=== PATIENT | male | born 1980 | race Caucasian/White ===

== ENCOUNTER → 2016-12-21 | Outpatient (CLI) | payer SELFPAY ==
--- NOTE | 2016-12-22 02:36 | REP ---
Clinical: Trauma. Technique: AP, lateral, bilateral oblique views right foot . Findings: The osseous structures and joint spaces are intact and normal. There is no evidence for acute fracture or dislocation. Surrounding soft tissues are unremarkable. No subcutaneous emphysema or radiodense foreign body. Impression: Normal examination. No acute fracture or dislocation. Signed by Tevin Franco MD 12/22/2016 02:27 A
== END ==
LOC: M WUC 12:33
PROVIDERS: ATTEND Physician Assistant
DX: M79.671 Pain in right foot (principal)

== ENCOUNTER 2018-03-17 18:03 | Inpatient (IN) | payer MEDICAID, SELFPAY ==
[2018-03-17 18:46] LABS: HEMATOCRIT 42.2 % (42.0-52.0); HEMOGLOBIN 14.8 g/dl (13.5-17.5); MEAN CORPUSCULAR HEMOGLOBIN 32.5 pg (27.0-33.0); MEAN CORPUSCULAR HGB CONC 35.1 g/dl (32.0-36.5); MEAN CORPUSCULAR VOLUME 92.5 fl (80.0-96.0); PLATELET COUNT, AUTOMATED 344 10^3/uL (150-450); RED BLOOD COUNT 4.56 10^6/uL (4.30-6.10); RED CELL DISTRIBUTION WIDTH 12.2 % (11.5-14.5); WHITE BLOOD COUNT 11.1 10^3/uL (4.0-10.0)
[2018-03-17 19:20] LABS: ALBUMIN 4.6 GM/DL (3.2-5.2); ALBUMIN/GLOBULIN RATIO 1.28 (1.00-1.93); ALKALINE PHOSPHATASE 93 U/L (45-117); ALT/SGPT 87 U/L (12-78); ANION GAP 11 MEQ/L (8-16); AST/SGOT 111 U/L (7-37); BILIRUBIN,DIRECT 0.2 MG/DL (0.0-0.2); BILIRUBIN,TOTAL 0.4 MG/DL (0.2-1.0); BLOOD UREA NITROGEN 12 MG/DL (7-18); CALCIUM LEVEL 9.1 MG/DL (8.5-10.1); CARBON DIOXIDE LEVEL 26 MEQ/L (21-32); CHLORIDE LEVEL 108 MEQ/L (98-107); CREATININE FOR GFR 1.16 MG/DL (0.70-1.30); ETHYL ALCOHOL (ETHANOL) 0.076 % (0.000-0.010); GLOMERULAR FILTRATION RATE > 60.0 (>60); GLUCOSE, FASTING 75 MG/DL (70-100); POTASSIUM SERUM 4.2 MEQ/L (3.5-5.1); SODIUM LEVEL 145 MEQ/L (136-145); TOTAL PROTEIN 8.2 GM/DL (6.4-8.2)
[2018-03-17 19:28] LABS: ACETAMINOPHEN LEVEL < 2.0 UG/ML (10.0-30.0)
[2018-03-17 19:37] LABS: AMPHETAMINES LEVEL URINE NEGATIVE (NEGATIVE); BARBITURATES URINE NEGATIVE (NEGATIVE); BENZODIAZEPINES URINE NEGATIVE (NEGATIVE); CANNABINOIDS URINE POSITIVE (NEGATIVE); COCAINE METABOLITE URINE POSITIVE (NEGATIVE); METHADONE URINE NEGATIVE (NEGATIVE); OPIATES URINE NEGATIVE (NEGATIVE); PHENCYCLIDINE URINE NEGATIVE (NEGATIVE)
[2018-03-17] MEDS ORDERED: MAALOX 30 ML SUSP *UDC PO (21:45)
[2018-03-17] MEDS ORDERED: OLANZapine ORAL DISINTEGRATING TAB 5MG PO (21:45)
[2018-03-17] MEDS ORDERED: MOM 30ML SUSPENSION UDC PO (21:45)
[2018-03-17] MEDS ORDERED: traZODone 50 MG TAB PO (21:45)
[2018-03-17] MEDS: LORazepam 0.5 MG TAB PO (23:10)
[2018-03-18] MEDS: ACETAMINOPHEN TAB 650MG DOSE (2X325MG) PO (01:41)
[2018-03-18] MEDS: diphenhydrAMINE 50 MG CAP PO (02:56)
[2018-03-18] MEDS: INFLUENZA QUADRIVALENT PF VACCINE 0.5ML SYRINGE (90686) IM ×2 (09:23→09:34)
[2018-03-18] MEDS: CETIRIZINE (ZyrTEC) 10 MG TAB PO (11:39)
[2018-03-18] MEDS: FLUTICASONE PROP 0.05% NASAL SPRAY 16 GM (FLONASE) NARES (11:42)
[2018-03-18] MEDS: BACITRACIN OINT 30GM TOP (11:43)
[2018-03-18] MEDS: CLOTRIMAZOLE 1% TOPICAL CREAM 30GM TOP ×2 (11:43→20:43)
[2018-03-18 12:30] LABS: HEPATITIS B SURFACE ANTIGEN NEGATIVE (NEGATIVE)
[2018-03-18 12:57] LABS: HEPATITIS C VIRUS ABY INDEX 0.1 INDEX (<0.8)
[2018-03-18 12:58] LABS: HEPATITIS B CORE ANTIBODY IGM NEGATIVE (NEGATIVE)
[2018-03-18 13:00] LABS: HEPATITIS A ANTIBODY IGM NEGATIVE (NEGATIVE)
[2018-03-18] MEDS: RISPERIDONE 1 MG PO ×3 (13:07→20:42)
[2018-03-19] MEDS: CLOTRIMAZOLE 1% TOPICAL CREAM 30GM TOP ×2 (08:14→21:00)
[2018-03-19] MEDS: FLUTICASONE PROP 0.05% NASAL SPRAY 16 GM (FLONASE) NARES (08:15)
[2018-03-19] MEDS: CETIRIZINE (ZyrTEC) 10 MG TAB PO (08:15)
[2018-03-19] MEDS: RISPERIDONE 1 MG PO ×4 (08:15→20:56)
[2018-03-19] MEDS: BACITRACIN OINT 30GM TOP ×2 (08:15→20:57)
[2018-03-19 08:17] LABS: ALBUMIN 3.6 GM/DL (3.2-5.2); ALBUMIN/GLOBULIN RATIO 1.13 (1.00-1.93); ALKALINE PHOSPHATASE 77 U/L (45-117); ALT/SGPT 62 U/L (12-78); ANION GAP 8 MEQ/L (8-16); AST/SGOT 37 U/L (7-37); BILIRUBIN,TOTAL 0.3 MG/DL (0.2-1.0); BLOOD UREA NITROGEN 10 MG/DL (7-18); CALCIUM LEVEL 8.8 MG/DL (8.5-10.1); CARBON DIOXIDE LEVEL 28 MEQ/L (21-32); CHLORIDE LEVEL 109 MEQ/L (98-107); CREATININE FOR GFR 0.86 MG/DL (0.70-1.30); GLOMERULAR FILTRATION RATE > 60.0 (>60); GLUCOSE, FASTING 90 MG/DL (70-100); POTASSIUM SERUM 3.9 MEQ/L (3.5-5.1); SODIUM LEVEL 145 MEQ/L (136-145); TOTAL PROTEIN 6.8 GM/DL (6.4-8.2)
[2018-03-19] MEDS: diphenhydrAMINE 50 MG CAP PO (23:04)
[2018-03-19] MEDS: LORazepam 1 MG TAB PO (23:04)
[2018-03-20] MEDS: RISPERIDONE 1 MG PO ×2 (09:27→21:11)
[2018-03-20] MEDS: CETIRIZINE (ZyrTEC) 10 MG TAB PO (09:27)
[2018-03-20] MEDS: BACITRACIN OINT 30GM TOP (09:28)
[2018-03-20] MEDS: FLUTICASONE PROP 0.05% NASAL SPRAY 16 GM (FLONASE) NARES (09:28)
[2018-03-20] MEDS: CLOTRIMAZOLE 1% TOPICAL CREAM 30GM TOP ×2 (09:28→21:13)
[2018-03-20] MEDS: BENZTROPINE 1 MG TAB PO ×2 (09:52→21:11)
[2018-03-21] MEDS: BENZTROPINE 1 MG TAB PO ×2 (09:22→21:09)
[2018-03-21] MEDS: CETIRIZINE (ZyrTEC) 10 MG TAB PO (09:22)
[2018-03-21] MEDS: RISPERIDONE 1 MG PO ×2 (09:22→21:09)
[2018-03-21] MEDS: CLOTRIMAZOLE 1% TOPICAL CREAM 30GM TOP ×2 (09:23→21:09)
[2018-03-21] MEDS: FLUTICASONE PROP 0.05% NASAL SPRAY 16 GM (FLONASE) NARES (09:24)
[2018-03-21] MEDS: diphenhydrAMINE 50 MG CAP PO (21:09)
[2018-03-21] MEDS: BACITRACIN OINT 30GM TOP (21:12)
[2018-03-22] MEDS: RISPERIDONE 1 MG PO ×2 (08:50→21:25)
[2018-03-22] MEDS: BENZTROPINE 1 MG TAB PO ×2 (08:50→21:25)
[2018-03-22] MEDS: CETIRIZINE (ZyrTEC) 10 MG TAB PO (08:51)
[2018-03-22] MEDS: CLOTRIMAZOLE 1% TOPICAL CREAM 30GM TOP ×2 (08:51→21:26)
[2018-03-22] MEDS: BACITRACIN OINT 30GM TOP (08:51)
[2018-03-22] MEDS: FLUTICASONE PROP 0.05% NASAL SPRAY 16 GM (FLONASE) NARES (08:51)
[2018-03-22] MEDS: diphenhydrAMINE 50 MG CAP PO (17:17)
[2018-03-23] MEDS: BENZTROPINE 1 MG TAB PO ×2 (08:47→21:10)
[2018-03-23] MEDS: RISPERIDONE 1 MG PO (08:47)
[2018-03-23] MEDS: FLUTICASONE PROP 0.05% NASAL SPRAY 16 GM (FLONASE) NARES (08:47)
[2018-03-23] MEDS: CETIRIZINE (ZyrTEC) 10 MG TAB PO (08:47)
[2018-03-23] MEDS: CLOTRIMAZOLE 1% TOPICAL CREAM 30GM TOP ×2 (08:48→21:11)
[2018-03-23] MEDS: risperiDONE 2 MG TAB PO (21:10)
[2018-03-24] MEDS: CETIRIZINE (ZyrTEC) 10 MG TAB PO (08:21)
[2018-03-24] MEDS: FLUTICASONE PROP 0.05% NASAL SPRAY 16 GM (FLONASE) NARES (08:21)
[2018-03-24] MEDS: CLOTRIMAZOLE 1% TOPICAL CREAM 30GM TOP ×2 (08:22→20:19)
[2018-03-24] MEDS: risperiDONE 2 MG TAB PO (20:19)
[2018-03-24] MEDS: BENZTROPINE 1 MG TAB PO (20:19)
[2018-03-24] MEDS: ACETAMINOPHEN TAB 650MG DOSE (2X325MG) PO (20:20)
[2018-03-25] MEDS: CETIRIZINE (ZyrTEC) 10 MG TAB PO (08:30)
[2018-03-25] MEDS: CLOTRIMAZOLE 1% TOPICAL CREAM 30GM TOP (08:31)
[2018-03-25] MEDS: FLUTICASONE PROP 0.05% NASAL SPRAY 16 GM (FLONASE) NARES (08:31)
== END 2018-03-25 17:55 | disposition home or self-care (01) | DRG 753 ==
LOC: M PSY 03-18 01:16 → M ED 18:03 → M ED INP 21:38
PROVIDERS: Psychiatry & Neurology Psychiatry
DX: F31.2 Bipolar disorder, current episode manic severe with psychotic features (principal); F14.10 Cocaine abuse, uncomplicated; F10.10 Alcohol abuse, uncomplicated; F12.10 Cannabis abuse, uncomplicated; J30.9 Allergic rhinitis, unspecified; S80.811A Abrasion, right lower leg, initial encounter; S80.812A Abrasion, left lower leg, initial encounter; R74.0 Nonspecific elevation of levels of transaminase and lactic acid dehydrogenase [LDH]; R21 Rash and other nonspecific skin eruption; Z79.899 Other long term (current) drug therapy; X58.XXXA Exposure to other specified factors, initial encounter; Y92.9 Unspecified place or not applicable; Y93.9 Activity, unspecified

== ENCOUNTER 2018-05-05 02:32 | Emergency (ER) | payer OTHER, MEDICAID ==
[2018-05-05 03:45] LABS: HEMATOCRIT 43.6 % (42.0-52.0); HEMOGLOBIN 14.8 g/dl (13.5-17.5); MEAN CORPUSCULAR HEMOGLOBIN 31.4 pg (27.0-33.0); MEAN CORPUSCULAR HGB CONC 33.9 g/dl (32.0-36.5); MEAN CORPUSCULAR VOLUME 92.4 fl (80.0-96.0); PLATELET COUNT, AUTOMATED 340 10^3/uL (150-450); RED BLOOD COUNT 4.72 10^6/uL (4.30-6.10); RED CELL DISTRIBUTION WIDTH 12.2 % (11.5-14.5); WHITE BLOOD COUNT 5.8 10^3/uL (4.0-10.0)
[2018-05-05 04:14] LABS: AMPHETAMINES LEVEL URINE NEGATIVE (NEGATIVE); BARBITURATES URINE NEGATIVE (NEGATIVE); BENZODIAZEPINES URINE NEGATIVE (NEGATIVE); CANNABINOIDS URINE POSITIVE (NEGATIVE); COCAINE METABOLITE URINE POSITIVE (NEGATIVE); METHADONE URINE NEGATIVE (NEGATIVE); OPIATES URINE NEGATIVE (NEGATIVE); PHENCYCLIDINE URINE NEGATIVE (NEGATIVE)
[2018-05-05 04:25] LABS: ACETAMINOPHEN LEVEL < 2.0 UG/ML (10.0-30.0); ALBUMIN 4.3 GM/DL (3.2-5.2); ALBUMIN/GLOBULIN RATIO 1.16 (1.00-1.93); ALKALINE PHOSPHATASE 91 U/L (45-117); ALT/SGPT 38 U/L (12-78); ANION GAP 11 MEQ/L (8-16); AST/SGOT 19 U/L (7-37); BILIRUBIN,DIRECT < 0.1 MG/DL (0.0-0.2); BILIRUBIN,TOTAL 0.2 MG/DL (0.2-1.0); BLOOD UREA NITROGEN 13 MG/DL (7-18); CALCIUM LEVEL 8.7 MG/DL (8.5-10.1); CARBON DIOXIDE LEVEL 27 MEQ/L (21-32); CHLORIDE LEVEL 106 MEQ/L (98-107); CREATININE FOR GFR 0.76 MG/DL (0.70-1.30); ETHYL ALCOHOL (ETHANOL) 0.071 % (0.000-0.010); GLOMERULAR FILTRATION RATE > 60.0 (>60); GLUCOSE, FASTING 98 MG/DL (70-100); POTASSIUM SERUM 3.8 MEQ/L (3.5-5.1); SALICYLATE LEVEL < 1.7 MG/DL (5.0-30.0); SODIUM LEVEL 144 MEQ/L (136-145)
== END 2018-05-05 05:52 | disposition home or self-care (01) ==
LOC: M ED 02:32
DX: Z91.048 Other nonmedicinal substance allergy status (principal); F19.10 Other psychoactive substance abuse, uncomplicated; F17.210 Nicotine dependence, cigarettes, uncomplicated
CPT/HCPCS: 80320

== ENCOUNTER → 2018-06-06 | Outpatient (CLI) | payer OTHER ==
[2018-06-06 08:23] LABS: HEMATOCRIT 41.8 % (42.0-52.0); HEMOGLOBIN 14.5 g/dl (13.5-17.5); MEAN CORPUSCULAR HEMOGLOBIN 31.7 pg (27.0-33.0); MEAN CORPUSCULAR HGB CONC 34.7 g/dl (32.0-36.5); MEAN CORPUSCULAR VOLUME 91.5 fl (80.0-96.0); PLATELET COUNT, AUTOMATED 291 10^3/uL (150-450); RED BLOOD COUNT 4.57 10^6/uL (4.30-6.10); RED CELL DISTRIBUTION WIDTH 12.1 % (11.5-14.5); WHITE BLOOD COUNT 7.1 10^3/uL (4.0-10.0)
[2018-06-06 08:51] LABS: ALBUMIN/GLOBULIN RATIO 1.18 (1.00-1.93); ALKALINE PHOSPHATASE 92 U/L (45-117); ALT/SGPT 28 U/L (12-78); ANION GAP 5 MEQ/L (8-16); AST/SGOT 14 U/L (7-37); BILIRUBIN,TOTAL 0.3 MG/DL (0.2-1.0); BLOOD UREA NITROGEN 18 MG/DL (7-18); CARBON DIOXIDE LEVEL 30 MEQ/L (21-32); CHLORIDE LEVEL 103 MEQ/L (98-107); CHOLESTEROL LEVEL 246 MG/DL (<200); CREATININE FOR GFR 0.97 MG/DL (0.70-1.30); GLOMERULAR FILTRATION RATE > 60.0 (>60); GLUCOSE, FASTING 93 MG/DL (70-100); HDL CHOLESTEROL 52 MG/DL (>40); IRON (FE) 122 UG/DL (65-175); LDL CHOLESTEROL 159 MG/DL (<100); NON-HDL-C 194 MG/DL; PERCENT SATURATION 41.4 % (19.7-50.0); POTASSIUM SERUM 4.1 MEQ/L (3.5-5.1); SODIUM LEVEL 138 MEQ/L (136-145); TOTAL IRON BINDING CAPACITY 295 UG/DL (250-450); TOTAL PROTEIN 7.4 GM/DL (6.4-8.2); TRIGLYCERIDES LEVEL 176 MG/DL (<150)
[2018-06-06 10:15] LABS: TOTAL 25(OH) VITAMIN D 23.8 NG/ML (30.0-100.0)
[2018-06-06 10:34] LABS: ESTIMATED AVERAGE GLUCOSE 114 MG/DL (60-110); HEMOGLOBIN A1c 5.6 %
== END ==
LOC: M LAB 07:48
DX: D64.9 Anemia, unspecified (principal); R53.83 Other fatigue; E03.9 Hypothyroidism, unspecified
CPT/HCPCS: 83550

== ENCOUNTER → 2018-06-21 | Outpatient (CLI) | payer OTHER | LOC: M SMT 15:11 | DX: J93.9 Pneumothorax, unspecified (principal) | CPT/HCPCS: 71046 ==

== ENCOUNTER → 2018-10-06 | Outpatient (CLI) | payer OTHER ==
[~2018-10-06] MED LIST: BENZ-52 PO; CLOTR1CR TOP; FLON1SPR NARES; RISP2TAB32 PO; TRAZO50TA PO; ZYRTTAB8 PO
== END ==
LOC: M OUTALCOH 07:50
PROVIDERS: ATTEND Psychiatry & Neurology Psychiatry
DX: F14.20 Cocaine dependence, uncomplicated (principal)

== ENCOUNTER → 2018-11-08 | Outpatient (RCR) | payer OTHER ==
[~2018-11-08] MED LIST changes: +CLOT1CRE27 TOP; -CLOTR1CR TOP
== END ==
LOC: M OUTALCOH 10-17 09:02
PROVIDERS: ATTEND Psychiatry & Neurology Psychiatry
DX: F14.20 Cocaine dependence, uncomplicated (principal)

== ENCOUNTER → 2018-12-09 | Outpatient (RCR) | payer OTHER | LOC: M OUTALCOH 11-18 08:17 | PROVIDERS: ATTEND Psychiatry & Neurology Psychiatry | DX: F14.20 Cocaine dependence, uncomplicated (principal) ==

== ENCOUNTER → 2018-12-23 | Outpatient (CLI) | payer OTHER ==
[~2018-12-23] MED LIST changes: +TRAZ1TAB10 PO; -TRAZO50TA PO
[2018-12-23 11:41] LABS: HEMATOCRIT 39.6 % (42.0-52.0); MEAN CORPUSCULAR HEMOGLOBIN 30.9 pg (27.0-33.0); MEAN CORPUSCULAR HGB CONC 32.8 g/dl (32.0-36.5); MEAN CORPUSCULAR VOLUME 94.1 fl (80.0-96.0); PLATELET COUNT, AUTOMATED 243 10^3/uL (150-450); RED BLOOD COUNT 4.21 10^6/uL (4.30-6.10); WHITE BLOOD COUNT 4.5 10^3/uL (4.0-10.0)
[2018-12-23 12:18] LABS: ALBUMIN 3.9 GM/DL (3.2-5.2); ALT/SGPT 24 U/L (12-78); BILIRUBIN,TOTAL 0.2 MG/DL (0.2-1.0); BLOOD UREA NITROGEN 10 MG/DL (7-18); CALCIUM LEVEL 8.5 MG/DL (8.5-10.1); CARBON DIOXIDE LEVEL 31 MEQ/L (21-32); CHLORIDE LEVEL 106 MEQ/L (98-107); CHOLESTEROL LEVEL 206 MG/DL (<200); CHOLESTEROL RISK RATIO 4.681 (<5); CREATININE FOR GFR 0.76 MG/DL (0.70-1.30); GLOMERULAR FILTRATION RATE > 60.0 (>60); GLUCOSE, FASTING 82 MG/DL (70-100); HDL CHOLESTEROL 44 MG/DL (>40); LDL CHOLESTEROL 137 MG/DL (<100); NON-HDL-C 162 MG/DL; POTASSIUM SERUM 4.7 MEQ/L (3.5-5.1); SODIUM LEVEL 140 MEQ/L (136-145); THYROXINE (T4) 7.6 UG/DL (4.5-12.0); TOTAL PROTEIN 7.3 GM/DL (6.4-8.2); TRIGLYCERIDES LEVEL 123 MG/DL (<150)
[2018-12-23 12:19] LABS: THYROID STIMULATING HORMONE 0.577 uIU/ML (0.358-3.740); TOTAL T3 101.3 NG/DL (60.0-181.0)
== END ==
LOC: M LAB 10:47
PROVIDERS: ATTEND Family Medicine
DX: R53.83 Other fatigue (principal); E03.9 Hypothyroidism, unspecified

== ENCOUNTER 2019-01-03 14:55 | Outpatient (RCR) | payer OTHER | END 2019-01-08 | LOC: M OUTALCOH 14:55 | PROVIDERS: ATTEND Psychiatry & Neurology Psychiatry | DX: F14.20 Cocaine dependence, uncomplicated (principal) ==

== ENCOUNTER 2019-01-16 08:49 | Outpatient (RCR) | payer OTHER | END 2019-02-08 | LOC: M OUTALCOH 08:49 | PROVIDERS: ATTEND Psychiatry & Neurology Psychiatry | DX: F14.20 Cocaine dependence, uncomplicated (principal) ==

== ENCOUNTER 2019-03-01 03:33 | Emergency (ER) | payer OTHER ==
[~2019-03-01] VITALS: Ht 188 cm; Wt 79.5 kg
[2019-03-01] MEDS ORDERED: AMPHET/DEXTR (03:39)
[2019-03-01] MEDS ORDERED: LEVO50TA5 PO (03:39)
[2019-03-01] MEDS ORDERED: VITA500045 PO (03:39)
[2019-03-01] MEDS ORDERED: ALPR1TAB3 PO (03:39)
[2019-03-01] MEDS ORDERED: FLUO40CA PO (03:39)
[2019-03-01] MEDS ORDERED: AUGMENTIN 875 MG TAB PO ONE (05:15)
[2019-03-01] MEDS ORDERED: AUGM875T28 PO (05:17)
[2019-03-01 05:42] VITALS: BP 109/57
[2019-07-21] MEDS ORDERED: ZYPR5TAB2 PO (09:28)
== END 2019-03-01 05:43 | disposition home or self-care (01) ==
LOC: M ED 03:33
DX: J02.9 Acute pharyngitis, unspecified (principal); F14.10 Cocaine abuse, uncomplicated; F12.10 Cannabis abuse, uncomplicated; Z72.0 Tobacco use; Z79.899 Other long term (current) drug therapy; J30.2 Other seasonal allergic rhinitis

== ENCOUNTER 2019-05-15 02:05 | Inpatient (IN) | payer OTHER ==
[~2019-05-15] VITALS: Ht 188 cm; Wt 75.0 kg
[~2019-05-15 02:05] MED LIST changes: +ALPR1TAB3 PO; +AMPHET/DEXTR; +AUGM875T28 PO; +FLUO40CA PO; +LEVO50TA5 PO; +VITA500045 PO
[2019-05-15 02:46] LABS: HEMATOCRIT 44.5 % (42.0-52.0); HEMOGLOBIN 14.5 g/dl (13.5-17.5); MEAN CORPUSCULAR HEMOGLOBIN 32.3 pg (27.0-33.0); MEAN CORPUSCULAR HGB CONC 32.6 g/dl (32.0-36.5); MEAN CORPUSCULAR VOLUME 99.1 fl (80.0-96.0); PLATELET COUNT, AUTOMATED 284 10^3/uL (150-450); RED BLOOD COUNT 4.49 10^6/uL (4.30-6.10); WHITE BLOOD COUNT 7.8 10^3/uL (4.0-10.0)
[2019-05-15 02:59] LABS: AMPHETAMINES LEVEL URINE NEGATIVE (NEGATIVE); BARBITURATES URINE NEGATIVE (NEGATIVE); BENZODIAZEPINES URINE POSITIVE (NEGATIVE); CANNABINOIDS URINE POSITIVE (NEGATIVE); COCAINE METABOLITE URINE NEGATIVE (NEGATIVE); METHADONE URINE NEGATIVE (NEGATIVE); OPIATES URINE NEGATIVE (NEGATIVE); PHENCYCLIDINE URINE NEGATIVE (NEGATIVE)
[2019-05-15 03:22] LABS: ACETAMINOPHEN LEVEL < 2.0 UG/ML (10.0-30.0); ALT/SGPT 28 U/L (12-78); BILIRUBIN,DIRECT < 0.1 MG/DL (0.0-0.2); BILIRUBIN,TOTAL 0.3 MG/DL (0.2-1.0); BLOOD UREA NITROGEN 16 MG/DL (7-18); CALCIUM LEVEL 8.7 MG/DL (8.5-10.1); CARBON DIOXIDE LEVEL 30 MEQ/L (21-32); CHLORIDE LEVEL 102 MEQ/L (98-107); CREATININE FOR GFR 0.92 MG/DL (0.70-1.30); ETHYL ALCOHOL (ETHANOL) < 0.003 % (0.000-0.010); GLOMERULAR FILTRATION RATE > 60.0 (>60); GLUCOSE, FASTING 87 MG/DL (70-100); POTASSIUM SERUM 4.2 MEQ/L (3.5-5.1); SALICYLATE LEVEL 2.3 MG/DL (5.0-30.0); SODIUM LEVEL 139 MEQ/L (136-145); TOTAL PROTEIN 7.9 GM/DL (6.4-8.2)
[2019-05-15] MEDS ORDERED: ADDE20TA PO (11:39)
[2019-05-15] MEDS ORDERED: MOM 30ML SUSPENSION UDC PO PRN (11:45)
[2019-05-15] MEDS ORDERED: ACETAMINOPHEN TAB 650MG DOSE (2X325MG) PO PRN (11:45)
[2019-05-15] MEDS: NICOTINE 7 MG/24 HR TRANSDERMAL TD SCH (12:43)
[2019-05-15] MEDS: OLANZapine ORAL DISINTEGRATING TAB 5MG PO PRN ×2 (13:31→22:25)
[2019-05-15 15:35] VITALS: BP 104/70
--- NOTE | 2019-05-15 16:44 | HPEPDOC ---
General Date of Admission May 15, 2019 at 11:41 Date of Service: May 15, 2019 Chief Complaint The patient is a 39-year-old male admitted with a reason for visit of Unspecified Psychosis. History of Present Illness 39 years old white male with past medical history of allergic rhinitis substance abuse was admitted and treated in psych unit last year. Again, he was brought in as he is distraught is mother's trailer and was suicidal and is being admitted to inpatient mental health unit. Not offering any complaints including shortness of breath, chest pain, anxiety, homicidal ideation Home Medications Scheduled Dextroamphetamine/Amphetamine (Adderall 20 mg Tablet) 20 Mg Tablet, 20 MG PO BID, (Reported) TAKES MORNING AND MID AFTERNOON, NO LATER THAN 1400 Ergocalciferol (Vitamin D2) (Vitamin D2) 50,000 Unit Capsule, 50,000 UNIT PO QWEEK, (Reported) WEDNESDAYS Fluoxetine Hcl (Fluoxetine HCl) 40 Mg Capsule, 40 MG PO DAILY, (Reported) Levothyroxine Sodium (Levothyroxine Sodium) 50 Mcg Tablet, 50 MCG PO DAILY, (Reported) Scheduled PRN Alprazolam (Alprazolam) 1 Mg Tablet, 1 MG PO TID PRN for ANXIETY, (Reported) Allergies Coded Allergies: WEEDS (Verified Allergy, Intermediate, hives, 05/15/19) Past Medical History Medical History Allergic rhinitis substance abuse Surgical History , Tympanostomy tubes, Family History Significant Family History: No pertinent family hx Social History * Smoker: Denies Alcohol: occationally Drugs: cocaine, marijuana A-FIB/CHADSVASC A-FIB History Current/History of A-Fib/PAF?: No Review of Systems Constitutional: Denies: Chills, Fever, Malaise, Night Sweats, Weakness, Fatigue, Weight Loss, Lethargy, Other Eyes: Denies: Pain, Vision change, Conjunctivae inflammation, Eyelid inflammation, Redness, Other ENT: Denies: Head Aches, Ear Pain, Dysphagia, Sinus Congestion, Post Nasal Drip, Sore Throat, Epistaxis, Other Symptoms Skin: Denies: Rash, Lesions, Jaundice, Bruising, Itching, Dry, Breakdown, Nail Changes, Other Pulmonary: Denies: Dyspnea, Cough, Pleuritic Chest Pain, Other Symptoms Cardiovascular: Denies: Chest Pain, Palpitations, Orthopnea, Paroxysmal Noc. Dyspnea, Edema, Lt Headedness, Other Symptoms Gastrointestinal: Denies: Nausea, Vomiting, Abdominal Pain, Diarrhea, Constipation, Melena, Hematochezia, Other Symptoms Hematologic: Denies: Bruising, Bleeding Excessively, Petecchia, Purpura, Enl arged Lymph Nodes, Other Hematologic Endocrine: Denies: Polydipsia, Polyphagia, Polyuria, Heat Intolerance, Cold Intolerance, Other Endocrine Sx Musculoskeletal: Denies: Neck Pain, Back Pain, Shoulder Pain, Arm Pain, Hand Pain, Leg Pain, Foot Pain, Joint Pain, Muscle Pain, Spasms, Other Symptoms Neurological: Denies: Weakness, Numbness, Incoordination, Change in speech, Confusion, Seizures, Other Symptoms Psych: Denies: Mood Normal, Anxiety, Depression, Memory Issues, Thoughts of Self Harm, Anger, Thoughts of Harming Other, Other Psych Physical Examination General Exam: Positive: Alert, Cooperative Eye Exam: Positive: PERRLA, Conjunctiva & lids normal ENT Exam: Positive: Atraumatic, Mucous membr. moist/pink Neck Exam: Positive: Supple Chest Exam: Positive: Clear to auscultation, Normal air movement Heart Exam: Positive: Rate Normal, Normal S1 Abdomen Exam: Positive: Normal bowel sounds, Soft Extremity Exam: Positive: Normal pulses Skin Exam: Positive: Nl turgor and temperature Neuro Exam: Positive: Normal Gait, Normal Speech, Strength at 5/5 X4 ext, Sensation Intact Psych Exam: Positive: Mental status NL, Mood NL Vital Signs Vital Signs Date Time Temp Pulse Resp B/P (MAP) Pulse Ox O2 Delivery O2 Flow Rate FiO2 05/15/19 15:25 96.8 67 19 136/92 (107) 98 Room Air Laboratory Data Labs 24H Laboratory Tests 2 05/15/19 02:16: Urine Opiates Screen NEGATIVE, Urine Methadone Screen NEGATIVE, Urine Barbiturates Screen NEGATIVE, Urine Phencyclidine Screen NEGATIVE, Urine Amphetamines Screen NEGATIVE, Urine Benzodiazepines Screen POSITIVEH, Urine Cocaine Metabolite Screen NEGATIVE, Urine Cannabinoids Screen POSITIVEH 05/15/19 02:35: Nucleated Red Blood Cells % (auto) 0.0, Anion Gap 7L, Glomerular Filtration Rate > 60.0, Calcium Level 8.7, Total Bilirubin 0.3, Direct Bilirubin < 0.1, Aspartate Amino Transf (AST/SGOT) 12, Alanine Aminotransferase (ALT/SGPT) 28, Alkaline Phosphatase 107, Total Protein 7.9, Albumin 4.0, Albumin/Globulin Ratio 1.03, Thyroid Stimulating Hormone (TSH) 1.310, Salicylates Level 2.3L, Acetaminophen Level < 2.0L, Ethyl Alcohol Level < 0.003 CBC/BMP Laboratory Tests 05/15/19 02:35 Problems (1) Depression with suicidal ideation Status: Acute Problem Text: Patient with depression and suicidal ideation admitted to psych unit Group and individual counseling sessions with psychiatry Psych meds as per psychiatry (2) Psychosis Status: Acute Problem Text: Further management as per psych (3) Polysubstance abuse Status: Acute Problem Text: History of polysubstance abuse Benzos and cannabinoids positive and urine tox screen For the counseling and management as per psychiatry Plan / VTE VTE Prophylaxis Ordered?: No VTE Exclusion Mechanical Proph: Low Risk for VTE VTE Exclusion Pharmacological: At Low Risk for VTE DEANDRE BADILLO MD May 15, 2019 16:44
[2019-05-16] MEDS ORDERED: LEVOTHYROXINE 50MCG TABLET (0.05MG) PO SCH ×2 (06:00→12:27)
[2019-05-16 06:36] VITALS: BP 112/64
[2019-05-16] MEDS: NICOTINE 7 MG/24 HR TRANSDERMAL TD SCH (09:00)
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
[2019-05-16 11:15] VITALS: BP 115/63
[2019-05-16] MEDS: FLUoxetine 20 MG CAP PO SCH (12:43)
[2019-05-16] MEDS: IBUPROFEN 600 MG TAB PO PRN ×2 (12:45→21:37)
[2019-05-16 15:24] VITALS: BP 143/73
[2019-05-16] MEDS ORDERED: risperiDONE 0.5 MG TAB PO SCH (21:00)
[2019-05-16] MEDS: ALPRAZolam 0.5 MG TAB PO PRN (21:37)
[2019-05-17] MEDS: IBUPROFEN 600 MG TAB PO PRN ×2 (05:18→08:37)
[2019-05-17 06:47] VITALS: BP 140/88
[2019-05-17] MEDS: FLUoxetine 20 MG CAP PO SCH (08:37)
[2019-05-17] MEDS: ALPRAZolam 0.5 MG TAB PO PRN (08:38)
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
== END 2019-05-17 12:30 | disposition home or self-care (01) | DRG 774 ==
LOC: M ED 02:05 → M ED INP 11:41 → M PSY 15:35
PROVIDERS: ADMIT Psychiatry & Neurology Addiction Medicine; ATTEND Psychiatry & Neurology Addiction Medicine
DX: F19.94 Other psychoactive substance use, unspecified with psychoactive substance-induced mood disorder (principal); F14.20 Cocaine dependence, uncomplicated; F43.10 Post-traumatic stress disorder, unspecified; F17.210 Nicotine dependence, cigarettes, uncomplicated; F12.20 Cannabis dependence, uncomplicated; Z79.899 Other long term (current) drug therapy; Z91.09 Other allergy status, other than to drugs and biological substances; J30.9 Allergic rhinitis, unspecified; F32.9 Major depressive disorder, single episode, unspecified; F29 Unspecified psychosis not due to a substance or known physiological condition

== ENCOUNTER 2019-07-13 17:13 | Inpatient (IN) | payer OTHER ==
[~2019-07-13] VITALS: Ht 188 cm; Wt 79.3 kg
[~2019-07-13 17:13] MED LIST changes: +ADDE20TA PO
[2019-07-13 17:49] LABS: HEMATOCRIT 45.4 % (42.0-52.0); HEMOGLOBIN 15.4 g/dl (13.5-17.5); MEAN CORPUSCULAR HEMOGLOBIN 32.4 pg (27.0-33.0); MEAN CORPUSCULAR HGB CONC 33.9 g/dl (32.0-36.5); MEAN CORPUSCULAR VOLUME 95.4 fl (80.0-96.0); PLATELET COUNT, AUTOMATED 297 10^3/uL (150-450); RED BLOOD COUNT 4.76 10^6/uL (4.30-6.10); WHITE BLOOD COUNT 8.6 10^3/uL (4.0-10.0)
[2019-07-13 18:19] LABS: ACETAMINOPHEN LEVEL < 2.0 UG/ML (10.0-30.0); ALBUMIN 4.2 GM/DL (3.2-5.2); ALT/SGPT 37 U/L (12-78); BILIRUBIN,DIRECT < 0.1 MG/DL (0.0-0.2); BILIRUBIN,TOTAL 0.2 MG/DL (0.2-1.0); BLOOD UREA NITROGEN 20 MG/DL (7-18); CALCIUM LEVEL 9.2 MG/DL (8.5-10.1); CARBON DIOXIDE LEVEL 30 MEQ/L (21-32); CHLORIDE LEVEL 104 MEQ/L (98-107); CREATININE FOR GFR 0.81 MG/DL (0.70-1.30); ETHYL ALCOHOL (ETHANOL) < 0.003 % (0.000-0.010); GLOMERULAR FILTRATION RATE > 60.0 (>60); GLUCOSE, FASTING 109 MG/DL (70-100); POTASSIUM SERUM 4.3 MEQ/L (3.5-5.1); SALICYLATE LEVEL < 1.7 MG/DL (5.0-30.0); SODIUM LEVEL 141 MEQ/L (136-145); TOTAL PROTEIN 7.9 GM/DL (6.4-8.2)
[2019-07-13 18:59] LABS: AMPHETAMINES LEVEL URINE NEGATIVE (NEGATIVE); BARBITURATES URINE NEGATIVE (NEGATIVE); BENZODIAZEPINES URINE NEGATIVE (NEGATIVE); CANNABINOIDS URINE POSITIVE (NEGATIVE); COCAINE METABOLITE URINE NEGATIVE (NEGATIVE); METHADONE URINE NEGATIVE (NEGATIVE); OPIATES URINE NEGATIVE (NEGATIVE); PHENCYCLIDINE URINE NEGATIVE (NEGATIVE)
[2019-07-13] MEDS ORDERED: ALPRAZolam 0.5 MG TAB PO ONE (19:30)
[2019-07-13] MEDS ORDERED: OLANZapine ORAL DISINTEGRATING TAB 5MG PO PRN (20:15)
[2019-07-13] MEDS ORDERED: MAALOX 30 ML SUSP *UDC PO PRN (20:15)
[2019-07-13] MEDS ORDERED: MOM 30ML SUSPENSION UDC PO PRN (20:15)
[2019-07-13 21:02] VITALS: BP 137/79
[2019-07-13] MEDS: ALPRAZolam 0.5 MG TAB PO PRN (21:40)
[2019-07-13] MEDS: ACETAMINOPHEN TAB 650MG DOSE (2X325MG) PO PRN (21:40)
[2019-07-13] MEDS: traZODone 50 MG TAB PO PRN (21:40)
[2019-07-14] MEDS: LEVOTHYROXINE 50MCG TABLET (0.05MG) PO SCH (06:09)
[2019-07-14 06:32] VITALS: BP 120/60
[2019-07-14] MEDS: FLUoxetine 20 MG CAP PO SCH (08:57)
[2019-07-14] MEDS ORDERED: hydrOXYzine 50 MG TAB PO PRN (11:45)
[2019-07-14] MEDS: ACETAMINOPHEN TAB 650MG DOSE (2X325MG) PO PRN (11:59)
--- NOTE | 2019-07-14 12:12 | MHHPEPDOC ---
General Date Of Admission: Jul 13, 2019 Legal Status: 9.39 Chief Complaint "I never said I was actually going to kill myself." History of Present Illness HISTORY OF THE PRESENT ILLNESS: Patient is a 39 -year-old , male, with a history of bipolar disorder and substance abuse last admitted [facility] for psychosis 05/17/19 who was brought to ED under 9.[address] after mother called them stating pt was decompensating, making suicidal threats for the past 3 days, and threatened to kill himself night prior admission. Per pt's mother he has been staying at his mother's [facility] and disconnected mother's security system that had given her video access to the property and blocked her phone number to she couldn't contact him. Pt once in ED stated "I never said I was actually going to kill myself." He stated he became upset with his mother after she informed him his ex-girlfriend was dating someone else, they had been together 15yrs. He states he was angry with his mother after she told him not to contact his ex-girlfriend anymore. He did state he text his mother "my life is over" and believes his mother "overreacted" to his text as he denies SI/HI in the ED. Pt's mother contacted by ED and stated that pt was minimizing his symptoms and not safe for d/c to to current suicidal stressors of impending trial DWI w/handgun possession ([facility] 1.5[facility]3yrs care home), recent break-up with 15yr long girlfriend, and property foreclosure. Pt's mother told ED she felt her son would be before the trial if he didn't get help. Past Psychiatric History Previous Psychiatric Diagnosis: bipolar d/o, ADHD Previous Psychiatric Admissions: last admission 05/18/2019 Suicide Attempts: SA attempt 2000 Psychiatric Follow-up: [facility], Dr. Su Psychiatric medications: prozac 40mg daily, xanax 1mg tid Past Medical History Medical Problems denies Head Injury: No Seizures: No Hospitalizations: No Surgeries: No Family Medical/Psychiatric HX Medical Problems noncontributory Psychiatric Disorders: Yes (mother has mental health problems) Addiction: No Suicide Attemps/Completions: No Addiction History nicotine, cocaine (hx of use), opioids (hx of use), other (cannabis- utox pos) Social History Childhood: born and raised in [place], parents at at 12, emacipated at 18, states mother was controlling and father is a retired county health officer, [place] Abuse/Trauma:denies Current Living Situation: lives in [place]. 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 Legal: DUI and drug dealing, history of incarceration, recent DWI w/gun possession facing care home sentence with plea deal 1.5-3yrs Marital: single, never , no kids Mental Status Examination General Appearance: well groomed, appears stated age, hospital scubs/clothing Build: average Demeanor: guarded Eye Contact: fair Activity: agitated, anxious Behavior: uncooperative, resistant Speech: clear, reg/rate,rhythm,volume Mood: anxious, irritable Mood I'm fine Affect: full, anxious, other (irritable) Thought Process: logical/linear Thought Content (Delusions): denies SI, HI, AVH Thought Content (Other): none reported Thought Content (Aggressive): none reported Perception (Hallucinations): none reported Perception (Other): none reported Cognition (Impairment of): none reported Cognition(Intelligence Est.): average Oriented: Awake, Alert, Oriented times three Insight: poor Judgment: Poor Psychosis: Denies Diagnoses Mood d/o unspecified R/O substance induced mood d/o - cannabis use cannabis use d/o A-FIB/CHADSVASC A-FIB History Current/History of A-Fib/PAF?: No Assessment Pt seen and states he had a recent break-up with his fiance and has been able to contact her b/c she changed her number and can't see her in [place] as he doesn't have a vehicle to drive there as he [facility] [place] [facility]. States he needs to get a hold of his ex-girlfriend to complete foreclosure on their home as the bank can't reach her to complete it but also admits he hopes they get back together b/c she reads his messages on instant gram as noted on the site even though she makes no effort to respond to them. Pt states he had a panic attack prior admission and that's why his mother got co ncerned and had him brought to ED. States he's fine now, not suicidal, doesn't want to be here, and isn't will to start any new meds to aid mood and anxiety. Pt appears to not be fully reliable though as he know denies texting his mother "my life is over" when in the ED he stated he did. Will restart prozac, d/c xanax as he hasn't taken it in 2months and utox neg, and provide vistaril 50mg q4hr prn for anxiety. Pt is unreliable and due to this pt not safe for d/c as could be lying to just be d/c as actions prior admission do not reflect what he's saying here. Initial Treatment Plan 1. Patient was admitted on a 9.39 status. 2. Complete history was obtained. 3. With patients permission, family will be contacted and database will be expanded. 4. Patients medication regimen will be reviewed and changed accordingly. 5. Patient will be provided with protected environment. 6. Patient will be treated with individual, group, and milieu therapies. 7. Patient will receive supportive psych-education. 8. Discharge planning will commence immediately. 9. Outpatient follow-up treatment will be strongly recommended. 10. The initial treatment plan will focus initially on: * Depression. * Risk for suicide. 11. restart prozac, d/c xanax, vistaril 50mg q4hr prn anxiety ESTIMATED LENGTH OF STAY: 5-7 DAYS. TIME SPENT COUNSELING AND COORDINATING INITIAL CARE: 60 minutes. Vital Signs Vital Signs Date Time Temp Pulse Resp B/P (MAP) Pulse Ox O2 Delivery O2 Flow Rate FiO2 07/14/19 07:36 Room Air 07/14/19 06:32 98.0 51 81 120/60 (80) 07/13/19 21:02 100 Laboratory Data 24H Labs Laboratory Tests 2 07/13/19 17:16: Urine Opiates Screen NEGATIVE, Urine Methadone Screen NEGATIVE, Urine Barbiturates Screen NEGATIVE, Urine Phencyclidine Screen NEGATIVE, Urine Amphetamines Screen NEGATIVE, Urine Benzodiazepines Screen NEGATIVE, Urine Cocaine Metabolite Screen NEGATIVE, Urine Cannabinoids Screen POSITIVEH 07/13/19 17:25: Nucleated Red Blood Cells % (auto) 0.0, Anion Gap 7L, Glomerular Filtration Rate > 60.0, Calcium Level 9.2, Total Bilirubin 0.2, Direct Bilirubin < 0.1, Aspartate Amino Transf (AST/SGOT) 11, Alanine Aminotransferase (ALT/SGPT) 37, Alkaline Phosphatase 74, Total Protein 7.9, Albumin 4.2, Albumin/Globulin Ratio 1.14, Thyroid Stimulating Hormone (TSH) 1.430, Salicylates Level < 1.7L, Acetaminophen Level < 2.0L, Ethyl Alcohol Level < 0.003 CBC/BMP Laboratory Tests 07/13/19 17:25 Medications Scheduled Fluoxetine Hcl (Fluoxetine HCl) 40 Mg Capsule, 40 MG PO DAILY, (Reported) Levothyroxine Sodium (Levothyroxine Sodium) 50 Mcg Tablet, 50 MCG PO DAILY, (Reported) Scheduled PRN Alprazolam (Alprazolam) 1 Mg Tablet, 1 MG PO TID PRN for ANXIETY, (Reported) Allergies Coded Allergies: WEEDS (Verified Allergy, Intermediate, hives, 05/15/19) ROLA LONDONO DO Jul 14, 2019 12:09
--- NOTE | 2019-07-14 13:31 | HPEPDOC ---
General Date of Admission Jul 13, 2019 at 20:35 Date of Service: Jul 14, 2018 Chief Complaint The patient is a 39-year-old male who presented to the emergency room with complaints of anger History of Present Illness Patient is a 39-year-old male with past medical history of hypothyroidism who presented to the emergency room for he broke up with his fiance and became angry. Patient was admitted to inpatient mental health unit under the care of psychiatry. Hospitalist services were consulted for medical screening evaluation. Patient denies any headache, nausea, vomiting, chest pain, shortness of breath, palpitations, cough, abdominal pain, constipation, diarrhea, or urinary discom fort. He denies any fevers or chills over the last 2 weeks. Patient has denied any changes in weight or appetite Home Medications Scheduled Fluoxetine Hcl (Fluoxetine HCl) 40 Mg Capsule, 40 MG PO DAILY, (Reported) Levothyroxine Sodium (Levothyroxine Sodium) 50 Mcg Tablet, 50 MCG PO DAILY, (Reported) Scheduled PRN Alprazolam (Alprazolam) 1 Mg Tablet, 1 MG PO TID PRN for ANXIETY, (Reported) Allergies Coded Allergies: WEEDS (Verified Allergy, Intermediate, hives, 05/15/19) Past Medical History Medical History Hypothyroidism Surgical History Denies any prior surgical history Family History - No history of malignancies Social History - Denies the use of alcohol, tobacco or illicit drugs; however, his drug screen was found to be positive for cannabinoids - Denies recent travel or sick contacts - Lives alone - Occupation; currently unemployed Review of Systems Other systems 10 point review of systems complete, all negative otherwise stated in HPI Vital Signs - Vitals: BP 120/60, HR 83, RR 18, Sat 100%RA, Temp 98.0F - General: Lying in bed, No acute distress, Speaking in full sentences, AAOx3 - HEENT: NC, AT, PERRLA, EOMI - CVS: RRR, +S1S2, - Murmurs / rubs / gallops - Lungs: Fair air entry bilaterally, No appreciable wheezing / rales / rhonchi - Abdomen: Soft, Non-distended, Non-tender - Extremities: No lower extremity edema, No calf tenderness - Neuro: No focal motor or sensory deficit - Skin: No visible rashes Laboratory Data Labs 24H Laboratory Tests 2 07/13/19 17:16: Urine Opiates Screen NEGATIVE, Urine Methadone Screen NEGATIVE, Urine Barbiturates Screen NEGATIVE, Urine Phencyclidine Screen NEGATIVE, Urine Amphetamines Screen NEGATIVE, Urine Benzodiazepines Screen NEGATIVE, Urine Co geo Metabolite Screen NEGATIVE, Urine Cannabinoids Screen POSITIVEH 07/13/19 17:25: Nucleated Red Blood Cells % (auto) 0.0, Anion Gap 7L, Glomerular Filtration Rate > 60.0, Calcium Level 9.2, Total Bilirubin 0.2, Direct Bilirubin < 0.1, Aspartate Amino Transf (AST/SGOT) 11, Alanine Aminotransferase (ALT/SGPT) 37, Alkaline Phosphatase 74, Total Protein 7.9, Albumin 4.2, Albumin/Globulin Ratio 1.14, Thyroid Stimulating Hormone (TSH) 1.430, Salicylates Level < 1.7L, Acetaminophen Level < 2.0L, Ethyl Alcohol Level < 0.003 CBC/BMP Laboratory Tests 07/13/19 17:25 Plan / VTE VTE Prophylaxis Ordered?: Yes Plan Plan Anger - Patient has been admitted to the inpatient mental health unit under the care of psychiatry - This is currently being managed by primary psychiatric service Hypothyroidism - Continue with levothyroxine DVT prophylaxis - Continue with early ambulation Female fitter type bar and segment was present throughout the duration of this history and physical examination Please reconsult hospitalist service as needed. SOLA PERSON MD Jul 14, 2019 13:31
[2019-07-14 18:00] VITALS: BP 113/65
[2019-07-14] MEDS: IBUPROFEN 800 MG TAB PO PRN (21:01)
[2019-07-14] MEDS: traZODone 50 MG TAB PO PRN (23:16)
[2019-07-15] MEDS: LEVOTHYROXINE 50MCG TABLET (0.05MG) PO SCH (06:18)
[2019-07-15 06:44] VITALS: BP 132/74
[2019-07-15] MEDS: FLUoxetine 20 MG CAP PO SCH (09:02)
[2019-07-15] MEDS: IBUPROFEN 800 MG TAB PO PRN ×3 (09:03→23:35)
[2019-07-15 15:56] VITALS: BP 142/78
--- NOTE | 2019-07-15 20:56 | MHIPN ---
DATE: 07/15/2019 The patient today states, "I am doing very good." He has no complaints and denies any suicidal ideations. MENTAL STATUS EXAMINATION: The patient is alert and oriented times three. He is pleasant, cooperative, verbally spontaneous. Eye contact is fairly good. There is no formal thought disorder noted. He says his mood is "very good." Affect is appropriate to mood. He is denying any psychotic symptoms. He is denying being suicidal or homicidal. Concentration is fair. Memory intact. Insight and judgment fair. DIAGNOSES: 1. Mood disorder, unspecified. 2. Rule out substance induced mood disorder (cannabis). 3. Cannabis use disorder. TREATMENT PLAN: At this point, we will continue to monitor the patient for continued elevation and stabilization of his mood and for continued resolution of suicidal ideations.
[2019-07-15] MEDS: traZODone 50 MG TAB PO PRN (23:20)
[2019-07-16] MEDS: LEVOTHYROXINE 50MCG TABLET (0.05MG) PO SCH (06:25)
[2019-07-16 06:43] VITALS: BP 148/83
[2019-07-16] MEDS: FLUoxetine 20 MG CAP PO SCH (08:40)
[2019-07-16] MEDS: IBUPROFEN 800 MG TAB PO PRN ×2 (14:24→22:40)
[2019-07-16 15:52] VITALS: BP 148/81
--- NOTE | 2019-07-16 20:11 | MHIPN ---
DATE: 07/16/2019 The patient today states, "I am doing pretty good." His mother came to visit him and so he is feeling that he is getting some support from her. He says that he does not sleep that good at night but he really does not want me to adjust his trazodone, he thinks that it is just because of being in the hospital and that he will sleep better at home. MENTAL STATUS EXAMINATION: He is alert and oriented times three. Eye contact is fairly good. There is no formal thought disorder noted. Mood is good. Affect is full range and appropriate. He is not psychotic, suicidal or homicidal. Concentration and memory are intact. Insight and judgment fair. DIAGNOSES: 1. Mood disorder, unspecified. 2. Rule out substance induced mood disorder. 3. Cannabis use disorder. TREATMENT PLAN: We will continue to monitor the patient for continued elevation and stabilization of his mood and continued resolution of suicidal ideations.
[2019-07-16] MEDS: traZODone 50 MG TAB PO PRN (22:37)
[2019-07-16] MEDS: ALPRAZolam 0.5 MG TAB PO PRN (22:37)
[2019-07-17 06:23] VITALS: BP 108/59
[2019-07-17] MEDS: LEVOTHYROXINE 50MCG TABLET (0.05MG) PO SCH (07:07)
[2019-07-17] MEDS: FLUoxetine 20 MG CAP PO SCH (08:09)
[2019-07-17] MEDS: ALPRAZolam 0.5 MG TAB PO PRN (08:09)
[2019-07-17] MEDS: IBUPROFEN 800 MG TAB PO PRN (08:09)
[2019-07-17] MEDS ORDERED: FLUO40CA PO (09:14)
[2019-07-17] MEDS ORDERED: HYDR50TA70 PO (11:33)
--- NOTE | 2019-07-18 09:55 | MHDSPDOC ---
[facility] Discharge Summary Discharge Summary DATE OF ADMISSION: Jul 13, 2019 at 20:35 DATE OF DISCHARGE: Jul 17, 2019 at 13:05 DISCHARGE DIAGNOSES: Mood d/o unspecified R/O substance induced mood d/o - cannabis use cannabis use d/o REASON FOR ADMISSION: Patient is a 39 -year-old , male, with a history of bipolar disorder and substance abuse last admitted [facility] for psychosis 05/17/19 who was brought to ED under 9.[address] after mother called them stating pt was decompensating, making suicidal threats for the past 3 days, and threatened to kill himself night prior admission. Per pt's mother he has been staying [facility] and disconnected mother's security system that had given her video access to the property and blocked her phone number to she couldn't contact him. Pt once in ED stated "I never said I was actually going to kill myself." He stated he became upset with his mother after she informed him his ex-girlfriend was dating someone else, they had been together 15yrs. He states he was angry with his mother after she told him not to contact his ex-girlfriend anymore. He did state he text his mother "my life is over" and believes his mother "overreacted" to his text as he denies SI/HI in the ED. Pt's mother contacted by ED and stated that pt was minimizing his symptoms and not safe for d/c to to current suicidal stressors of impending trial DWI w/handgun possession ([facility]it[facility]), recent break-up with 15yr long girlfriend, and property foreclosure. Pt's mother told ED she felt her son would be before the trial if he didn't get help. Pt seen and states he had a recent break-up with his fiance and has been able to contact her b/c she changed her number and can't see her in [place] as he doesn't have a vehicle to drive there as he is in [place] at [facility] currently. States he needs to get a hold of his ex-girlfriend to complete foreclosure on their home as the bank can't reach her to complete it but also admits he hopes they get back together b/c she reads his messages on instant gram as noted on the site even though she makes no effort to respond to them. Pt states he had a panic attack prior admission and that's why his mother got concerned and had him brought to ED. States he's fine now, not suicidal, doesn't want to be here, and isn't will to start any new meds to aid mood and anxiety. Pt appears to not be fully reliable though as he know denies texting his mother "my life is over" when in the ED he stated he did. Will restart prozac, d/c xanax as he hasn't taken it in 2months and utox neg, and provide vistaril 50mg q4hr prn for anxiety. Pt is unreliable and due to this pt not safe for d/c as could be lying to just be d/c as actions prior admission do not reflect what he's saying here. CONSULTANTS INVOLVED: none TREATMENT AND PROGRESS ON THE UNIT : Pt was admitted to [facility], seen for psychiatric assessment and restarted on his outpatient medication prozac 40mg daily He was provided vistaril 50mg qid prn anxiety and trazodone 50mg qhs prn insomnia. Pt found his medications beneficial and tolerated them well. He attended groups daily during his stay. His symptoms improved with treatment. On day of discharge he denied depression, anxiety, insomnia, SI/HI, hallucinations, delusions. He was discharged home with follow-up at [facility]. He felt safe for discharge. DISCHARGE ASSESSMENT: :Pt seen and states that his mood is "good" and that he's looking forward to going home today. States he slept well last night. Feels he is tolerating his medications and they're beneficial. He is attending groups and finding them helpful. He denies depression, anxiety, insomnia, SI/HI, hallucinations, delusions. Pt feels safe to d/c home today. MENTAL STATUS EXAMINATION ON DISCHARGE: General Appearance: well groomed, appears stated age, hospital srcubs/clothing Build: average Demeanor: cooperative Eye Contact: good Activity: average Behavior: uncooperative, resistant Speech: clear, reg/rate,rhythm,volume Mood: euthymic, full range Mood "good" Affect: full, euthymic, congruent Thought Process: logical/linear Thought Content (Delusions): denies SI, HI, AVH Thought Content (Other): none reported Thought Content (Aggressive): none reported Perception (Hallucinations): none reported Perception (Other): none reported Cognition (Impairment of): none reported Cognition(Intelligence Est.): average Oriented: Awake, Alert, Oriented times three Insight: good Judgment: good Psychosis: Denies MEDICATIONS ON DISCHARGE: prozac 40mg daily vistaril 50mg qid prn anxiety PLAN/FOLLOWUP ARRANGEMENTS: D/c home with follow-up at [facility]. The amount of time spent in the coordination of care for this patient was approximately 30 minutes. Patient is a 39 -year-old , male, with a history of bipolar disorder and substance abuse last admitted [facility] for psychosis 05/17/19 who was brought to ED under 9.[address] after mother called them stating pt was decompensating, making suicidal threats for the past 3 days, and threatened to kill himself night prior admission. Per pt's mother he has been staying [facility] and disconnected mother's security system that had given her video access to the property and blocked her phone number to she couldn't contact him. Pt once in ED stated "I never said I was actually going to kill myself." He stated he became upset with his mother after she informed him his ex-girlfriend was dating someone else, they had been together 15yrs. He states he was angry with his mother after she told him not to contact his ex-girlfriend anymore. He did state he text his mother "my life is over" and believes his mother "overreacted" to his text as he denies SI/HI in the ED. Pt's mother contacted by ED and stated that pt was minimizing his symptoms and not safe for d/c to to current suicidal stressors of impending trial DWI w/handgun possession ([facility] penitent[facility]), recent break-up with 15yr long girlfriend, and property foreclosure. Pt's mother told ED she felt her son would be before the trial if he didn't get help. Past Psychiatric History Previous Psychiatric Diagnosis: bipolar d/o, ADHD Previous Psychiatric Admissions: last admission 05/18/2019 Suicide Attempts: SA attempt 2000 Psychiatric Follow-up: [facility], Dr. Su Psychiatric medications: prozac 40mg daily, xanax 1mg tid Past Medical History Medical Problems denies Head Injury: No Seizures: No Hospitalizations: No Surgeries: No Family Medical/Psychiatric HX Medical Problems noncontributory Psychiatric Disorders: Yes (mother has mental health problems) Addiction: No Suicide Attemps/Completions: No Addiction History nicotine, cocaine (hx of use), opioids (hx of use), other (cannabis- utox pos) Social History Childhood: born and raised in [place], parents at at 12, emacipated at 18, states mother was controlling and father is a retired campus police officer, [place] childhood Abuse/Trauma:denies Current Living Situation: lives in [place]. 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 Legal: DUI and drug dealing, history of incarceration, recent DWI w/gun possession facing penitentiary sentence with plea deal 1.5-3yrs Marital: single, never , no kids Mental Status Examination General Appearance: well groomed, appears stated age, hospital scubs/clothing Build: average Demeanor: guarded Eye Contact: fair Activity: agitated, anxious Behavior: uncooperative, resistant Speech: clear, reg/rate,rhythm,volume Mood: anxious, irritable Mood I'm fine Affect: full, anxious, other (irritable) Thought Process: logical/linear Thought Content (Delusions): denies SI, HI, AVH Thought Content (Other): none reported Thought Content (Aggressive): none reported Perception (Hallucinations): none reported Perception (Other): none reported Cognition (Impairment of): none reported Cognition(Intelligence Est.): average Oriented: Awake, Alert, Oriented times three Insight: poor Judgment: Poor Psychosis: Denies Diagnoses Mood d/o unspecified R/O substance induced mood d/o - cannabis use cannabis use d/o A-FIB/CHADSVASC A-FIB History Current/History of A-Fib/PAF?: No Assessment Pt seen and states he had a recent break-up with his fiance and has been able to contact her b/c she changed her number and can't see her in [place] as he doesn't have a vehicle to drive there as he is in [place] at his [facility] currently. States he needs to get a hold of his ex-girlfriend to complete foreclosure on their home as the bank can't reach her to complete it but also admits he hopes they get back together b/c she reads his messages on instant gr am as noted on the site even though she makes no effort to respond to them. Pt states he had a panic attack prior admission and that's why his mother got concerned and had him brought to ED. States he's fine now, not suicidal, doesn't want to be here, and isn't will to start any new meds to aid mood and anxiety. Pt appears to not be fully reliable though as he know denies texting his mother "my life is over" when in the ED he stated he did. Will restart prozac, d/c xanax as he hasn't taken it in 2months and utox neg, and provide vistaril 50mg q4hr prn for anxiety. Pt is unreliable and due to this pt not safe for d/c as could be lying to just be d/c as actions prior admission do not reflect what he's saying here. Initial Treatment Plan 1. Patient was admitted on a 9.39 status. 2. Complete history was obtained. 3. With patients permission, family will be contacted and database will be expanded. 4. Patients medication regimen will be reviewed and changed accordingly. 5. Patient will be provided with protected environment. 6. Patient will be treated with individual, group, and milieu therapies. 7. Patient will receive supportive psych-education. 8. Discharge planning will commence immediately. 9. Outpatient follow-up treatment will be strongly recommended. 10. The initial treatment plan will focus initially on: * Depression. * Risk for suicide. 11. restart prozac, d/c xanax, vistaril 50mg q4hr prn anxiety Vital Signs/I&Os Vital Signs Date Time Temp Pulse Resp B/P (MAP) Pulse Ox O2 Delivery O2 Flow Rate FiO2 07/17/19 06:23 98.2 59 18 108/59 (75) 07/14/19 07:36 Room Air 07/13/19 21:02 100 Medications Scheduled Fluoxetine Hcl (Fluoxetine HCl) 40 Mg Capsule, 40 MG PO DAILY for mood, #10 Levothyroxine Sodium (Levothyroxine Sodium) 50 Mcg Tablet, 50 MCG PO DAILY, (Reported) Scheduled PRN Hydroxyzine HCl (Hydroxyzine HCl) 50 Mg Tablet, 50 MG PO QIDP PRN for ANXIETY/AGITATION, #30 Allergies Coded Allergies: WEEDS (Verified Allergy, Intermediate, hives, 05/15/19) ROLA LONDONO DO Jul 18, 2019 09:55
== END 2019-07-17 13:05 | disposition home or self-care (01) | DRG 753 ==
LOC: M ED 17:13 → M PSY 20:35
PROVIDERS: ADMIT Psychiatry & Neurology Psychiatry; ATTEND Psychiatry & Neurology Psychiatry
DX: F39 Unspecified mood [affective] disorder (principal); F12.288 Cannabis dependence with other cannabis-induced disorder; R45.851 Suicidal ideations; Z79.899 Other long term (current) drug therapy; Z91.09 Other allergy status, other than to drugs and biological substances; E03.9 Hypothyroidism, unspecified; Z56.0 Unemployment, unspecified; Z65.3 Problems related to other legal circumstances; R45.4 Irritability and anger

== ENCOUNTER → 2020-03-11 | Outpatient (CLI) | payer OTHER ==
[~2020-03-11] MED LIST changes: +HYDR50TA70 PO; +ZYPR5TAB2 PO
[2020-03-11 13:18] LABS: HEMOGLOBIN 14.2 g/dl (13.5-17.5); MEAN CORPUSCULAR HEMOGLOBIN 32.1 pg (27.0-33.0); MEAN CORPUSCULAR HGB CONC 33.8 g/dl (32.0-36.5); MEAN CORPUSCULAR VOLUME 94.8 fl (80.0-96.0); PLATELET COUNT, AUTOMATED 262 10^3/uL (150-450); RED BLOOD COUNT 4.43 10^6/uL (4.30-6.10); WHITE BLOOD COUNT 6.5 10^3/uL (4.0-10.0)
[2020-03-11 13:48] LABS: ALBUMIN 3.8 GM/DL (3.2-5.2); ALT/SGPT 35 U/L (12-78); BILIRUBIN,TOTAL 0.3 MG/DL (0.2-1.0); BLOOD UREA NITROGEN 18 MG/DL (7-18); CALCIUM LEVEL 8.5 MG/DL (8.5-10.1); CARBON DIOXIDE LEVEL 30 MEQ/L (21-32); CHLORIDE LEVEL 105 MEQ/L (98-107); CHOLESTEROL LEVEL 244 MG/DL (<200); CHOLESTEROL RISK RATIO 6.256 (<5); CREATININE FOR GFR 0.78 MG/DL (0.70-1.30); GLOMERULAR FILTRATION RATE > 60.0 (>60); GLUCOSE, FASTING 90 MG/DL (70-100); HDL CHOLESTEROL 39 MG/DL (>40); LDL CHOLESTEROL 169 MG/DL (<100); NON-HDL-C 205 MG/DL; POTASSIUM SERUM 4.2 MEQ/L (3.5-5.1); SODIUM LEVEL 139 MEQ/L (136-145); THYROID STIMULATING HORMONE 0.578 uIU/ML (0.358-3.740); TOTAL 25(OH) VITAMIN D 59.7 NG/ML (30.0-100.0); TOTAL PROTEIN 7.2 GM/DL (6.4-8.2); TRIGLYCERIDES LEVEL 180 MG/DL (<150)
[2020-03-11 13:56] LABS: HEMOGLOBIN A1c 5.5 %
--- NOTE | 2020-04-02 10:32 | ECGEPIP ---
[facility] Test Date: 2020-03-11 Pat Name: OEBY MCKEON Department: Room: - Gender: Male Medical Records Custodian: TITUS : 1980 Requested By: Miguel Aragon Order Number: [id number] Reading MD: Chin Russell Measurements Intervals [place] Rate: 56 P: 70 OH: 173 QRS: 67 QRSD: 94 T: 32 QT: 418 QTc: 407 Interpretive Statements SINUS BRADYCARDIA BORDERLINE ECG AGREE SEE SCANNED DOWNTIME REPORT
--- NOTE | 2020-04-08 09:01 | REP ---
CHEST X-RAY CLINICAL: Hypertension and fatigue. TECHNIQUE: PA and lateral. COMPARISON: 06/21/2018. FINDINGS: Mediastinum and cardiac silhouette normal. Lung solorzano clear. No focal consolidation, effusion, or pneumothorax. Skeletal structures are intact. IMPRESSION: Normal chest x-ray. MTDD
== END ==
LOC: M LAB 11:13
PROVIDERS: ATTEND Family Medicine
DX: R53.83 Other fatigue (principal); I10 Essential (primary) hypertension; E29.1 Testicular hypofunction

== ENCOUNTER 2020-08-05 03:47 | Emergency (ER) | payer OTHER ==
[~2020-08-05] VITALS: Ht 188 cm; Wt 88.2 kg
[2020-08-05] MEDS ORDERED: XANA0.5T PO (04:00)
[2020-08-05 04:27] LABS: HEMOGLOBIN 14.7 g/dl (13.5-17.5); MEAN CORPUSCULAR HEMOGLOBIN 31.2 pg (27.0-33.0); MEAN CORPUSCULAR HGB CONC 33.4 g/dl (32.0-36.5); MEAN CORPUSCULAR VOLUME 93.4 fl (80.0-96.0); PLATELET COUNT, AUTOMATED 298 10^3/uL (150-450); RED BLOOD COUNT 4.71 10^6/uL (4.30-6.10); WHITE BLOOD COUNT 8.6 10^3/uL (4.0-10.0)
--- NOTE | 2020-08-05 04:56 | REPVR ---
PROCEDURE INFORMATION: Exam: US Scrotum and Artery or Vein of the Abdominal and/or Reproductive Organs, Limited Scrotum Exam date and time: 08/05/2020 4:43 AM Age: 40 years old Clinical indication: Scrotum pain; Additional info: R/O torsion TECHNIQUE: Imaging protocol: Real-time ultrasound of the scrotum. Real-time duplex ultrasound scan of the arterial or venous flow with pacheco scale, color Doppler flow and spectral waveform analysis with image documentation. Limited Duplex exam focused of the scrotum. Duplex images required to evaluate for torsion and other vascular conditions. COMPARISON: No relevant prior studies available. FINDINGS: Right testicle: The right testicle measures 4.9 x 3.2 x 2.4 cm. No right intratesticular mass is seen. Nonspecific few scattered tiny microcalcifications seen in the right testicle. Arterial blood flow seen to the right testicle with peak systolic velocity of 3.7 centimeter/second and resistive index of 0.62. Venous blood flow seen to the right testicle. Left testicle: The left testicle measures 5.1 x 3.1 x 2.8 cm. No left intratesticular mass is seen. Nonspecific few scattered tiny microcalcifications seen in the left testicle. Arterial blood flow seen to the left testicle with peak systolic velocity of 4.26 and resistive index of 0.59. Venous blood flow seen to the left testicle. Epididymides: The right epididymal head measures 8.8 mm and appears grossly unremarkable. The left epididymal head measures 5.7 mm in appears grossly unremarkable. Scrotum: There is a small right-sided hydrocele. There is small left-sided hydrocele. Symmetric blood flow seen to the right and left testicles. IMPRESSION: 1. No sonographic evidence of testicular torsion or epididymoorchitis. 2. No intratesticular mass seen. Nonspecific few scattered bilateral testicular microcalcifications. 3. Nonspecific small bilateral hydroceles, slightly more prominent on the left. Electronically signed by: Terry Payan On 08/05/2020 04:56:08 AM
[2020-08-05 05:01] LABS: BLOOD UREA NITROGEN 15 MG/DL (7-18); CALCIUM LEVEL 8.9 MG/DL (8.5-10.1); CARBON DIOXIDE LEVEL 29 MEQ/L (21-32); CHLORIDE LEVEL 104 MEQ/L (98-107); CREATININE FOR GFR 0.87 MG/DL (0.70-1.30); GLOMERULAR FILTRATION RATE > 60.0 (>60); GLUCOSE, FASTING 96 MG/DL (70-100); POTASSIUM SERUM 3.6 MEQ/L (3.5-5.1); SODIUM LEVEL 141 MEQ/L (136-145)
[2020-08-05 05:08] LABS: INR 0.92; PROTHROMBIN TIME 12.5 SECONDS (12.5-14.3)
[2020-08-05 06:02] VITALS: BP 132/63
== END 2020-08-05 06:06 | disposition home or self-care (01) ==
LOC: M ED 03:47
DX: N43.3 Hydrocele, unspecified (principal); Z79.890 Hormone replacement therapy; Z91.048 Other nonmedicinal substance allergy status

== ENCOUNTER → 2020-08-28 | Outpatient (CLI) | payer OTHER ==
[~2020-08-28] MED LIST changes: +XANA0.5T PO
[2020-08-28 12:10] LABS: FOLLICLE STIMULATING HORMONE 1.5 mIU/mL (1.4-18.1); LUTEINIZING HORMONE 1.1 mIU/mL (1.5-9.3)
[2020-08-30 16:08] LABS: TESTOSTERONE FREE (DIRECT) 7.6 pg/mL (8.7-25.1)
== END ==
LOC: M LAB 08:49
PROVIDERS: ATTEND Urology
DX: N52.9 Male erectile dysfunction, unspecified (principal)

== ENCOUNTER → 2020-09-06 | Outpatient (CLI) | payer OTHER ==
[2020-09-06 11:28] LABS: HEMATOCRIT 44.2 % (42.0-52.0); HEMOGLOBIN 14.5 g/dl (13.5-17.5); MEAN CORPUSCULAR HEMOGLOBIN 31.6 pg (27.0-33.0); MEAN CORPUSCULAR HGB CONC 32.8 g/dl (32.0-36.5); MEAN CORPUSCULAR VOLUME 96.3 fl (80.0-96.0); PLATELET COUNT, AUTOMATED 320 10^3/uL (150-450); RED BLOOD COUNT 4.59 10^6/uL (4.30-6.10); WHITE BLOOD COUNT 7.5 10^3/uL (4.0-10.0)
[2020-09-06 11:47] LABS: ALBUMIN 4.3 GM/DL (3.2-5.2); ALT/SGPT 37 U/L (12-78); BILIRUBIN,TOTAL 0.5 MG/DL (0.2-1.0); BLOOD UREA NITROGEN 13 MG/DL (7-18); CALCIUM LEVEL 8.8 MG/DL (8.5-10.1); CARBON DIOXIDE LEVEL 30 MEQ/L (21-32); CHLORIDE LEVEL 108 MEQ/L (98-107); CHOLESTEROL LEVEL 125 MG/DL (<200); CREATININE FOR GFR 0.86 MG/DL (0.70-1.30); GLOMERULAR FILTRATION RATE > 60.0 (>60); GLUCOSE, FASTING 88 MG/DL (70-100); HDL CHOLESTEROL 51 MG/DL (>40); HEMOGLOBIN A1c 5.3 %; IRON (FE) 124 UG/DL (65-175); LDL CHOLESTEROL 54 MG/DL (<100); NON-HDL-C 74 MG/DL; PERCENT SATURATION 46.3 % (19.7-50.0); POTASSIUM SERUM 4.4 MEQ/L (3.5-5.1); SODIUM LEVEL 143 MEQ/L (136-145); THYROID STIMULATING HORMONE 0.407 uIU/ML (0.358-3.740); TOTAL IRON BINDING CAPACITY 268 UG/DL (250-450); TOTAL PROTEIN 7.2 GM/DL (6.4-8.2); TRIGLYCERIDES LEVEL 101 MG/DL (<150)
[2020-09-06 11:48] LABS: TOTAL 25(OH) VITAMIN D 69.5 NG/ML (30.0-100.0)
== END ==
LOC: M LAB 09:32
PROVIDERS: ATTEND Family Medicine
DX: R53.83 Other fatigue (principal); E03.9 Hypothyroidism, unspecified

== ENCOUNTER 2020-12-17 19:24 | Emergency (ER) | payer OTHER ==
[~2020-12-17] VITALS: Ht 188 cm; Wt 77.1 kg
[2020-12-17 21:41] LABS: BASO % 0.3 % (0.0-1.0); EOS % 0.1 % (0.0-3.0); HEMATOCRIT 43.3 % (42.0-52.0); HEMOGLOBIN 14.7 g/dl (13.5-17.5); LYMPH # 1.3 10^3/uL (1.5-5.0); LYMPH % 12.2 % (24.0-44.0); MEAN CORPUSCULAR HEMOGLOBIN 31.9 pg (27.0-33.0); MEAN CORPUSCULAR HGB CONC 33.9 g/dl (32.0-36.5); MEAN CORPUSCULAR VOLUME 93.9 fl (80.0-96.0); MONO # 0.7 10^3/uL (0.0-0.8); MONO % 6.8 % (2.0-8.0); NEUTROPHILS # 8.3 10^3/uL (1.5-8.5); NEUTROPHILS % 80.5 % (36.0-66.0); PLATELET COUNT, AUTOMATED 288 10^3/uL (150-450); RED BLOOD COUNT 4.61 10^6/uL (4.30-6.10); WHITE BLOOD COUNT 10.3 10^3/uL (4.0-10.0)
[2020-12-17 22:05] LABS: ALBUMIN 4.3 GM/DL (3.2-5.2); ALT/SGPT 39 U/L (12-78); BILIRUBIN,DIRECT 0.2 MG/DL (0.0-0.2); BILIRUBIN,TOTAL 0.8 MG/DL (0.2-1.0); BLOOD UREA NITROGEN 17 MG/DL (7-18); CALCIUM LEVEL 9.2 MG/DL (8.5-10.1); CARBON DIOXIDE LEVEL 29 MEQ/L (21-32); CHLORIDE LEVEL 102 MEQ/L (98-107); GLOMERULAR FILTRATION RATE > 60.0 (>60); GLUCOSE, FASTING 81 MG/DL (70-100); LIPASE 75 U/L (73-393); POTASSIUM SERUM 4.4 MEQ/L (3.5-5.1); SODIUM LEVEL 139 MEQ/L (136-145); TOTAL PROTEIN 7.9 GM/DL (6.4-8.2)
[2020-12-18] MEDS ORDERED: ONDANSETRON 4MG/2ML VIAL IV ONE (01:20)
[2020-12-18] MEDS ORDERED: KETOROLAC 30 MG/ML 1ML VIAL IV ONE (01:20)
[2020-12-18] MEDS ORDERED: NS 1,000 ML IV ONE (01:20)
[2020-12-18] MEDS ORDERED: ONDA4TAB6 PO (02:41)
--- NOTE | 2020-12-18 02:43 | REPVR ---
PROCEDURE INFORMATION: Exam: US Abdomen, Limited; Right Upper Quadrant Exam date and time: 12/18/2020 1:58 AM Age: 40 years old Clinical indication: Abdominal pain; Additional info: Ruq tender, nvd TECHNIQUE: Imaging protocol: US abdomen. Real time ultrasound with image documentation. Limited exam focused on the right upper quadrant. COMPARISON: No relevant prior studies available. FINDINGS: Liver: Normal. No masses. Gallbladder: Normal. No gallstones. There is no gallbladder wall thickening. Common bile duct: Normal. No stones. No dilation. Pancreas: Visualized pancreas is unremarkable. Right kidney: Normal. No mass. No hydronephrosis. IMPRESSION: No acute findings. Electronically signed by: Danny Lassiter On 12/18/2020 02:43:23 AM
[2020-12-18 02:57] VITALS: BP 134/74
== END 2020-12-18 02:57 | disposition home or self-care (01) ==
LOC: M ED 19:24
DX: R11.2 Nausea with vomiting, unspecified (principal); R19.7 Diarrhea, unspecified; K21.9 Gastro-esophageal reflux disease without esophagitis; F10.10 Alcohol abuse, uncomplicated; J30.89 Other allergic rhinitis; Z79.899 Other long term (current) drug therapy
CPT/HCPCS: 76705; 80048; 80076; 83690; 85025; 96361; 96374; 96375; 99284; J1885; J2405

== ENCOUNTER → 2021-10-16 | Outpatient (CLI) | payer OTHER ==
[~2021-10-16] MED LIST changes: +ONDA4TAB6 PO
[2021-10-16 09:14] LABS: HEMATOCRIT 43.2 % (42.0-52.0); HEMOGLOBIN 14.6 g/dl (13.5-17.5); MEAN CORPUSCULAR HEMOGLOBIN 32.8 pg (27.0-33.0); MEAN CORPUSCULAR HGB CONC 33.8 g/dl (32.0-36.5); MEAN CORPUSCULAR VOLUME 97.1 fl (80.0-96.0); PLATELET COUNT, AUTOMATED 280 10^3/uL (150-450); RED BLOOD COUNT 4.45 10^6/uL (4.30-6.10); WHITE BLOOD COUNT 7.6 10^3/uL (4.0-10.0)
[2021-10-16 09:50] LABS: HEMOGLOBIN A1c 5.4 %
[2021-10-16 09:55] LABS: ALBUMIN 3.8 GM/DL (3.2-5.2); ALT/SGPT 27 U/L (12-78); BILIRUBIN,TOTAL 0.3 MG/DL (0.2-1.0); BLOOD UREA NITROGEN 13 MG/DL (7-18); CALCIUM LEVEL 9.1 MG/DL (8.5-10.1); CARBON DIOXIDE LEVEL 31 MEQ/L (21-32); CHLORIDE LEVEL 108 MEQ/L (98-107); CHOLESTEROL LEVEL 153 MG/DL (<200); CREATININE FOR GFR 0.88 MG/DL (0.70-1.30); GLOMERULAR FILTRATION RATE > 60.0 (>60); GLUCOSE, FASTING 94 MG/DL (70-100); HDL CHOLESTEROL 45 MG/DL (>40); LDL CHOLESTEROL 57 MG/DL (<100); NON-HDL-C 108 MG/DL; POTASSIUM SERUM 4.4 MEQ/L (3.5-5.1); SODIUM LEVEL 141 MEQ/L (136-145); TOTAL 25(OH) VITAMIN D 63.9 NG/ML (30.0-100.0); TOTAL PROTEIN 7.2 GM/DL (6.4-8.2); TRIGLYCERIDES LEVEL 255 MG/DL (<150)
[2021-10-16 09:58] LABS: TESTOSTERONE 476 NG/DL (241-827)
== END ==
LOC: M LAB 07:43
PROVIDERS: ATTEND Family Medicine
DX: D64.9 Anemia, unspecified (principal); R53.83 Other fatigue; E03.9 Hypothyroidism, unspecified

== ENCOUNTER → 2021-11-13 | Outpatient (CLI) | payer OTHER | LOC: M LAB 09:05 | PROVIDERS: ATTEND Family Medicine | DX: Z79.899 Other long term (current) drug therapy (principal) ==

== ENCOUNTER → 2022-02-12 | Outpatient (CLI) | payer OTHER | LOC: M RAD 07:53 | PROVIDERS: ATTEND Surgery | DX: D48.5 Neoplasm of uncertain behavior of skin (principal) ==

== ENCOUNTER → 2022-03-23 | Outpatient (CLI) | payer OTHER ==
[~2022-03-23] MED LIST changes: +LIDOCAINE 1% MDV 20ML VIAL As Ordered ONE
[2022-03-23 09:51] VITALS: BP 145/89
== END ==
LOC: M IRPRO 08:50
PROVIDERS: ATTEND Surgery
DX: D48.1 Neoplasm of uncertain behavior of connective and other soft tissue (principal)

== ENCOUNTER → 2022-05-14 | Outpatient (CLI) | payer OTHER ==
[~2022-05-14] MED LIST changes: +ERGO500029; +ISOVUE-370 76% 100ML VIAL As Ordered ONE; -LIDOCAINE 1% MDV 20ML VIAL As Ordered ONE
== END ==
LOC: M RAD 15:14
PROVIDERS: ATTEND Otolaryngology
DX: R22.1 Localized swelling, mass and lump, neck (principal)
CPT/HCPCS: 70491; Q9967

== ENCOUNTER → 2022-05-28 | Outpatient (CLI) | payer OTHER ==
[~2022-05-28] MED LIST changes: -ISOVUE-370 76% 100ML VIAL As Ordered ONE
== END ==
LOC: M LABSMTC 09:00
PROVIDERS: ATTEND Anesthesiology
DX: Z01.812 Encounter for preprocedural laboratory examination (principal); Z11.52 Encounter for screening for COVID-19

== ENCOUNTER 2022-06-02 06:45 | Day surgery (SDC) | payer OTHER ==
[~2022-06-02] VITALS: Ht 188 cm; Wt 87.5 kg
[2022-06-02] MEDS ORDERED: propofoL 200 MG/20 ML VIAL As Ordered ONE ×2 (07:29→09:20)
[2022-06-02] MEDS ORDERED: LIDOCAINE 2% 100MG/5ML SDV (FOR ANES.) As Ordered ONE (07:29)
[2022-06-02] MEDS ORDERED: SUCCINYLCHOLINE 100MG/5ML SYRINGE As Ordered ONE (07:29)
[2022-06-02] MEDS ORDERED: ONDANSETRON 4MG 2ML VIAL As Ordered ONE (07:29)
[2022-06-02] MEDS ORDERED: LR 1,000 ML IV SCH (07:30)
[2022-06-02] MEDS ORDERED: MIDAZOLAM INJ 2MG/2ML VIAL (J2250 PER 1MG) As Ordered ONE ×2 (07:30→08:28)
[2022-06-02] MEDS ORDERED: fentaNYL 100 MCG/2 ML INJECTION As Ordered ONE (07:30)
[2022-06-02] MEDS ORDERED: BACITRACIN OINTMENT 30GM TUBE As Ordered ONE (08:01)
[2022-06-02] MEDS ORDERED: LIDOCAINE W/EPINEPHRINE 1% 20ML VIAL As Ordered ONE (08:01)
[2022-06-02] MEDS ORDERED: GLYCOPYRROLATE INJ 0.2 MG/ML 2 ML VIAL As Ordered ONE (09:04)
[2022-06-02] MEDS ORDERED: ONDANSETRON 4MG 2ML VIAL IV PRN (09:50)
[2022-06-02] MEDS ORDERED: fentaNYL 100 MCG/2 ML INJECTION IV PRN (09:50)
[2022-06-02] MEDS ORDERED: oxyCODONE 5MG TAB PO PRN (09:50)
[2022-06-02] MEDS ORDERED: MORPHINE 2 MG/ML 1ML VIAL IV PRN (09:50)
[2022-06-02 11:07] VITALS: BP 128/80
== END 2022-06-02 12:00 | disposition home or self-care (01) ==
LOC: M SDC 06:45
PROVIDERS: ATTEND Otolaryngology
DX: D47.Z9 Other specified neoplasms of uncertain behavior of lymphoid, hematopoietic and related tissue (principal); E03.9 Hypothyroidism, unspecified; F43.10 Post-traumatic stress disorder, unspecified; F41.9 Anxiety disorder, unspecified; F32.A Depression, unspecified; F12.10 Cannabis abuse, uncomplicated; J30.2 Other seasonal allergic rhinitis; Z79.899 Other long term (current) drug therapy
CPT/HCPCS: 38724; 88307; J0330; J1100; J2250; J2405; J3010

== ENCOUNTER → 2022-06-18 | Outpatient (CLI) | payer OTHER ==
[~2022-06-18] MED LIST changes: +LIDOCAINE 1% MDV 20ML VIAL As Ordered ONE
[2022-06-18 09:57] VITALS: BP 112/69
[2022-06-18 09:58] LABS: BASO % 0.5 % (0.0-1.0); EOS # 0.2 10^3/uL (0.0-0.5); EOS % 1.8 % (0.0-3.0); HEMATOCRIT 39.7 % (42.0-52.0); HEMOGLOBIN 13.8 g/dl (13.5-17.5); LYMPH # 1.7 10^3/uL (1.5-5.0); LYMPH % 21.1 % (24.0-44.0); MEAN CORPUSCULAR HEMOGLOBIN 32.5 pg (27.0-33.0); MEAN CORPUSCULAR HGB CONC 34.8 g/dl (32.0-36.5); MEAN CORPUSCULAR VOLUME 93.6 fl (80.0-96.0); MONO # 0.7 10^3/uL (0.0-0.8); MONO % 8.6 % (2.0-8.0); NEUTROPHILS # 5.5 10^3/uL (1.5-8.5); NEUTROPHILS % 67.5 % (36.0-66.0); PLATELET COUNT, AUTOMATED 257 10^3/uL (150-450); RED BLOOD COUNT 4.24 10^6/uL (4.30-6.10); WHITE BLOOD COUNT 8.1 10^3/uL (4.0-10.0)
== END ==
LOC: M IRPRO 09:12
PROVIDERS: ATTEND Internal Medicine Medical Oncology
DX: R22.1 Localized swelling, mass and lump, neck (principal)

== ENCOUNTER → 2022-07-10 | Outpatient (CLI) | payer OTHER ==
[~2022-07-10] MED LIST changes: -ERGO500029; +ERGO500029 PO; -LIDOCAINE 1% MDV 20ML VIAL As Ordered ONE
== END ==
LOC: M ONCR 07:52
PROVIDERS: ATTEND General Practice
DX: C82.01 Follicular lymphoma grade I, lymph nodes of head, face, and neck (principal); E03.9 Hypothyroidism, unspecified; J30.89 Other allergic rhinitis; Z79.890 Hormone replacement therapy; Z87.891 Personal history of nicotine dependence

== ENCOUNTER 2022-08-25 08:13 | Outpatient (RCR) | payer OTHER ==
[~2022-08-25 08:13] MED LIST changes: -BENZ-52 PO; +BENZ1TAB5 PO
== END 2022-09-08 ==
LOC: M ONCR 08:13
PROVIDERS: ATTEND General Practice
DX: C82.11 Follicular lymphoma grade II, lymph nodes of head, face, and neck (principal)

== ENCOUNTER 2022-09-09 08:06 | Outpatient (RCR) | payer OTHER | END 2022-10-09 | LOC: M ONCR 08:06 | PROVIDERS: ATTEND General Practice | DX: C82.11 Follicular lymphoma grade II, lymph nodes of head, face, and neck (principal) ==

== ENCOUNTER → 2022-09-22 | Outpatient (CLI) | payer OTHER | LOC: M RAD 10:32 | PROVIDERS: ATTEND Family Medicine | DX: M79.642 Pain in left hand (principal); M25.742 Osteophyte, left hand ==

== ENCOUNTER → 2022-10-01 | Outpatient (CLI) | payer OTHER ==
[2022-10-01 09:55] LABS: HEMATOCRIT 44.3 % (42.0-52.0); HEMOGLOBIN 15.4 g/dl (13.5-17.5); MEAN CORPUSCULAR HEMOGLOBIN 32.4 pg (27.0-33.0); MEAN CORPUSCULAR HGB CONC 34.8 g/dl (32.0-36.5); MEAN CORPUSCULAR VOLUME 93.1 fl (80.0-96.0); PLATELET COUNT, AUTOMATED 266 10^3/uL (150-450); RED BLOOD COUNT 4.76 10^6/uL (4.30-6.10); WHITE BLOOD COUNT 8.1 10^3/uL (4.0-10.0)
[2022-10-01 10:27] LABS: HEMOGLOBIN A1c 5.4 % (4.0-6.0)
[2022-10-01 10:41] LABS: ALBUMIN 4.3 G/DL (3.2-5.2); ALKALINE PHOSPHATASE 73 U/L (46-116); ALT/SGPT 22 U/L (7.0-40); AST/SGOT 20 U/L (<34); BILIRUBIN,TOTAL 0.6 MG/DL (0.3-1.2); BLOOD UREA NITROGEN 14 MG/DL (9-23); CARBON DIOXIDE LEVEL 30 MMOL/L (20-31); CHLORIDE LEVEL 104 MMOL/L (98-107); CHOLESTEROL LEVEL 230 MG/DL (<200); CREATININE FOR GFR 0.69 MG/DL (0.70-1.30); GLOMERULAR FILTRATION RATE > 60.0 (>60); GLUCOSE, FASTING 97 MG/DL (60-100); HDL CHOLESTEROL 49.9 MG/DL (>40); LDL CHOLESTEROL 153.9 MG/DL (<100); NON-HDL-C 180.1 MG/DL; POTASSIUM SERUM 4.3 MMOL/L (3.5-5.1); SODIUM LEVEL 140 MMOL/L (136-145); TESTOSTERONE 415 NG/DL (241-827); THYROID STIMULATING HORMONE 0.919 uIU/ML (0.55-4.78); TOTAL 25(OH) VITAMIN D 52.2 NG/ML (20.0-100.0); TOTAL PROTEIN 7.2 G/DL (5.7-8.2); TRIGLYCERIDES LEVEL 131 MG/DL (<150)
== END ==
LOC: M LAB 08:48
PROVIDERS: ATTEND Family Medicine
DX: D64.9 Anemia, unspecified (principal); R53.83 Other fatigue; E03.9 Hypothyroidism, unspecified

== ENCOUNTER 2022-11-06 15:57 | Outpatient (RCR) | payer OTHER ==
[2022-11-09] MEDS ORDERED: LIDO15SO PO (16:46)
== END 2022-11-08 ==
LOC: M ONCR 15:57
PROVIDERS: ATTEND General Practice
DX: C82.11 Follicular lymphoma grade II, lymph nodes of head, face, and neck (principal)

== ENCOUNTER 2022-11-10 16:00 | Outpatient (RCR) | payer OTHER ==
[~2022-11-10 16:00] MED LIST changes: +LIDO15SO PO
== END 2022-12-09 ==
LOC: M ONCR 16:00
PROVIDERS: ATTEND General Practice
DX: C82.11 Follicular lymphoma grade II, lymph nodes of head, face, and neck (principal)

== ENCOUNTER → 2022-12-29 | Outpatient (REF) | payer OTHER | LOC: M LAB REF 09:19 | PROVIDERS: ATTEND Family Medicine | DX: Z51.81 Encounter for therapeutic drug level monitoring (principal); Z79.899 Other long term (current) drug therapy ==

== ENCOUNTER → 2023-01-20 | Outpatient (CLI) | payer OTHER ==
[~2023-01-20] MED LIST changes: +ISOVUE-370 76% 100ML VIAL As Ordered ONE
== END ==
LOC: M RAD 08:30
PROVIDERS: ATTEND General Practice
DX: C82.11 Follicular lymphoma grade II, lymph nodes of head, face, and neck (principal)
CPT/HCPCS: 70491; Q9967

== ENCOUNTER 2023-02-03 17:52 | Emergency (ER) | payer OTHER ==
[~2023-02-03] VITALS: Ht 188 cm; Wt 89.9 kg
[~2023-02-03 17:52] MED LIST changes: -ISOVUE-370 76% 100ML VIAL As Ordered ONE
[2023-02-03 17:53] VITALS: BP 142/87; TEMP 98.9; O2SAT 99
== END 2023-02-03 21:35 | disposition left against medical advice (07) ==
LOC: M ED 17:52
DX: Z53.21 Procedure and treatment not carried out due to patient leaving prior to being seen by health care provider (principal)

== ENCOUNTER → 2023-02-24 | Outpatient (CLI) | payer OTHER | LOC: M ONCR 15:50 | PROVIDERS: ATTEND General Practice | DX: C82.11 Follicular lymphoma grade II, lymph nodes of head, face, and neck (principal); F12.90 Cannabis use, unspecified, uncomplicated; J30.2 Other seasonal allergic rhinitis; Z71.2 Person consulting for explanation of examination or test findings; Z79.899 Other long term (current) drug therapy; Z87.891 Personal history of nicotine dependence; Z92.3 Personal history of irradiation ==

== ENCOUNTER → 2023-08-23 | Outpatient (CLI) | payer OTHER ==
[2023-08-23 09:16] LABS: HEMATOCRIT 42.5 % (42.0-52.0); HEMOGLOBIN 14.7 g/dl (13.5-17.5); MEAN CORPUSCULAR HEMOGLOBIN 32.5 pg (27.0-33.0); MEAN CORPUSCULAR HGB CONC 34.6 g/dl (32.0-36.5); MEAN CORPUSCULAR VOLUME 93.8 fl (80.0-96.0); PLATELET COUNT, AUTOMATED 270 10^3/uL (150-450); RED BLOOD COUNT 4.53 10^6/uL (4.30-6.10); WHITE BLOOD COUNT 7.2 10^3/uL (4.0-10.0)
[2023-08-23 09:40] LABS: ALKALINE PHOSPHATASE 72 U/L (46-116); ALT/SGPT 20 U/L (7.0-40); AST/SGOT 12 U/L (<34); BILIRUBIN,TOTAL 0.4 MG/DL (0.3-1.2); BLOOD UREA NITROGEN 20 MG/DL (9-23); CALCIUM LEVEL 8.7 MG/DL (8.5-10.1); CARBON DIOXIDE LEVEL 28 MMOL/L (20-31); CHLORIDE LEVEL 109 MMOL/L (98-107); CHOLESTEROL LEVEL 204 MG/DL (<200); CHOLESTEROL RISK RATIO 4.17 (<5); GLOMERULAR FILTRATION RATE > 60.0 (>60); GLUCOSE, FASTING 94 MG/DL (60-100); HDL CHOLESTEROL 48.9 MG/DL (>40); LDL CHOLESTEROL 135.9 MG/DL (<100); NON-HDL-C 155.1 MG/DL; POTASSIUM SERUM 4.1 MMOL/L (3.5-5.1); SODIUM LEVEL 141 MMOL/L (136-145); THYROID STIMULATING HORMONE 2.398 uIU/ML (0.55-4.78); TOTAL PROTEIN 6.7 G/DL (5.7-8.2); TRIGLYCERIDES LEVEL 96 MG/DL (<150)
[2023-08-23 09:42] LABS: HEMOGLOBIN A1c 5.4 % (4.0-6.0)
== END ==
LOC: M LAB 08:29
PROVIDERS: ATTEND Family Medicine
DX: D64.9 Anemia, unspecified (principal); R53.83 Other fatigue; E03.9 Hypothyroidism, unspecified

== ENCOUNTER → 2023-09-01 | Outpatient (CLI) | payer OTHER | LOC: M ONCR 15:02 | PROVIDERS: ATTEND General Practice | DX: C82.11 Follicular lymphoma grade II, lymph nodes of head, face, and neck (principal); J30.2 Other seasonal allergic rhinitis; Z87.891 Personal history of nicotine dependence; Z92.3 Personal history of irradiation ==

== ENCOUNTER → 2024-03-01 | Outpatient (CLI) | payer OTHER ==
[~2024-03-01] MED LIST changes: -LIDO15SO PO; +LIDO15SO8 PO; +ONDA-282 PO; -ONDA4TAB6 PO
== END ==
LOC: M ONCR 15:03
PROVIDERS: ATTEND General Practice
DX: C82.11 Follicular lymphoma grade II, lymph nodes of head, face, and neck (principal); Z87.891 Personal history of nicotine dependence; J30.2 Other seasonal allergic rhinitis; Z79.890 Hormone replacement therapy; Z79.899 Other long term (current) drug therapy; Z92.3 Personal history of irradiation

== ENCOUNTER → 2024-03-07 | Outpatient (CLI) | payer OTHER ==
[~2024-03-07] MED LIST changes: +ISOVUE-370 76% 100ML VIAL As Ordered ONE
== END ==
LOC: M RAD 07:54
PROVIDERS: ATTEND General Practice
DX: C82.11 Follicular lymphoma grade II, lymph nodes of head, face, and neck (principal)
CPT/HCPCS: 70491; Q9967

== ENCOUNTER → 2024-06-06 | Outpatient (CLI) | payer OTHER ==
[~2024-06-06] MED LIST changes: -ISOVUE-370 76% 100ML VIAL As Ordered ONE
[2024-06-06 08:15] LABS: HEMOGLOBIN 14.7 g/dl (13.5-17.5); MEAN CORPUSCULAR HEMOGLOBIN 31.7 pg (27.0-33.0); MEAN CORPUSCULAR HGB CONC 34.2 g/dl (32.0-36.5); MEAN CORPUSCULAR VOLUME 92.9 fl (80.0-96.0); PLATELET COUNT, AUTOMATED 299 10^3/uL (150-450); RED BLOOD COUNT 4.63 10^6/uL (4.30-6.10); WHITE BLOOD COUNT 4.6 10^3/uL (4.0-10.0)
[2024-06-06 08:28] LABS: HEMOGLOBIN A1c 5.4 % (4.0-6.0)
[2024-06-06 08:47] LABS: ALBUMIN 3.7 G/DL (3.2-5.2); ALKALINE PHOSPHATASE 84 U/L (40-129); ALT/SGPT 58 U/L (7.0-40); AST/SGOT 17 U/L (<34); BILIRUBIN,TOTAL 0.3 MG/DL (0.3-1.2); BLOOD UREA NITROGEN 22 MG/DL (9-23); CALCIUM LEVEL 8.8 MG/DL (8.5-10.1); CARBON DIOXIDE LEVEL 30 MMOL/L (20-31); CHLORIDE LEVEL 106 MMOL/L (98-107); CHOLESTEROL LEVEL 248 MG/DL (<200); CHOLESTEROL RISK RATIO 5.29 (<5); GLOMERULAR FILTRATION RATE > 60.0 (>60); GLUCOSE, FASTING 94 MG/DL (60-100); HDL CHOLESTEROL 46.8 MG/DL (>40); NON-HDL-C 201.2 MG/DL; POTASSIUM SERUM 4.2 MMOL/L (3.5-5.1); PROSTATIC SPECIFIC AG MONITOR 0.63 NG/ML (< 4.00); SODIUM LEVEL 139 MMOL/L (136-145); TOTAL PROTEIN 7.3 G/DL (5.7-8.2); TRIGLYCERIDES LEVEL 176 MG/DL (<150)
[2024-06-06 08:49] LABS: TESTOSTERONE 419 NG/DL (241-827); THYROID STIMULATING HORMONE 3.192 uIU/ML (0.55-4.78)
== END ==
LOC: M LAB 07:02
PROVIDERS: ATTEND Family Medicine
DX: D64.9 Anemia, unspecified (principal); R53.83 Other fatigue; E03.9 Hypothyroidism, unspecified

== ENCOUNTER 2024-10-23 15:12 | Emergency (ER) | payer OTHER ==
[~2024-10-23] VITALS: Ht 188 cm; Wt 106.5 kg
[2024-10-23] MEDS: BOOSTRIX VACCINE (TETANUS/DIPHTH/ACEL. PERTUSSIS) 0.5ML SYR IM ONE (18:17)
[2024-10-23] MEDS: LIDOCAINE 2% MDV 20ML VIAL SC ONE (18:35)
[2024-10-23 19:36] VITALS: BP 139/91; TEMP 97.6; O2SAT 99
== END 2024-10-23 19:34 | disposition home or self-care (01) ==
LOC: M ED 15:12
DX: S61.411A Laceration without foreign body of right hand, initial encounter (principal); W26.8XXA Contact with other sharp object(s), not elsewhere classified, initial encounter; Y92.9 Unspecified place or not applicable; Y93.9 Activity, unspecified; Y99.0 Civilian activity done for income or pay; J30.2 Other seasonal allergic rhinitis; Z79.899 Other long term (current) drug therapy

== ENCOUNTER → 2025-01-25 | Outpatient (CLI) | payer OTHER ==
[2025-01-25 08:19] LABS: PLATELET COUNT, AUTOMATED 264 10^3/uL (150-450)
[2025-01-25 08:31] LABS: ESTIMATED AVERAGE GLUCOSE 111.0 MG/DL (60-110)
[2025-01-25 08:44] LABS: ALT/SGPT 23 U/L (7.0-40); AST/SGOT 21 U/L (<34); CALCIUM LEVEL 9.1 MG/DL (8.5-10.1); CARBON DIOXIDE LEVEL 29 MMOL/L (20-31); CHLORIDE LEVEL 105 MMOL/L (98-107); CHOLESTEROL LEVEL 213 MG/DL (<200); CHOLESTEROL RISK RATIO 4.98 (<5); CREATININE FOR GFR 0.80 MG/DL (0.70-1.30); GLOMERULAR FILTRATION RATE > 90.0 (>60); LDL CHOLESTEROL 139.1 MG/DL (<100); NON-HDL-C 170.3 MG/DL; POTASSIUM SERUM 4.4 MMOL/L (3.5-5.1); SODIUM LEVEL 141 MMOL/L (136-145); TRIGLYCERIDES LEVEL 156 MG/DL (<150)
[2025-01-25 08:46] LABS: TESTOSTERONE 491 NG/DL (241-827)
[2025-01-25 08:47] LABS: TOTAL 25(OH) VITAMIN D 37.9 NG/ML (20.0-100.0)
== END ==
LOC: M LAB 07:20 → EDSTATUS 01-26 10:16
PROVIDERS: ATTEND Family Medicine
DX: D64.9 Anemia, unspecified (principal); R53.83 Other fatigue; E03.9 Hypothyroidism, unspecified